=== PATIENT | male | born 1955 | race Caucasian/White ===

== ENCOUNTER → 2021-11-23 | Outpatient (REF) | payer MEDICARE ==
[2021-11-23 18:37] LABS: ALBUMIN 3.7 GM/DL (3.2-5.2); BILIRUBIN,TOTAL 0.5 MG/DL (0.2-1.0); CALCIUM LEVEL 9.4 MG/DL (8.8-10.2); CREATININE FOR GFR 1.33 MG/DL (0.70-1.30); GLOMERULAR FILTRATION RATE 57.3 (>49); POTASSIUM SERUM 3.3 MEQ/L (3.5-5.1); TOTAL PROTEIN 7.6 GM/DL (6.4-8.2)
== END ==
LOC: M LAB REF 17:06
PROVIDERS: ATTEND Family Medicine
DX: I13.0 Hypertensive heart and chronic kidney disease with heart failure and stage 1 through stage 4 chronic kidney disease, or unspecified chronic kidney disease (principal); I50.9 Heart failure, unspecified; N18.9 Chronic kidney disease, unspecified

== ENCOUNTER → 2021-12-20 | Outpatient (REF) | payer MEDICARE ==
[2021-12-20 18:04] LABS: BLOOD UREA NITROGEN 32 MG/DL (7-18); CALCIUM LEVEL 9.3 MG/DL (8.8-10.2); CARBON DIOXIDE LEVEL 27 MEQ/L (21-32); CHLORIDE LEVEL 100 MEQ/L (98-107); CREATININE FOR GFR 1.16 MG/DL (0.70-1.30); GLOMERULAR FILTRATION RATE > 60.0 (>49); GLUCOSE, FASTING 122 MG/DL (70-100); POTASSIUM SERUM 3.7 MEQ/L (3.5-5.1); SODIUM LEVEL 137 MEQ/L (136-145)
== END ==
LOC: M LABDRAWC 17:09
PROVIDERS: ATTEND Physician Assistant
DX: I49.3 Ventricular premature depolarization (principal)

== ENCOUNTER → 2022-03-14 | Outpatient (REF) | payer MEDICARE ==
[2022-03-14 17:24] LABS: ALBUMIN 3.7 G/DL (3.2-5.2); ALKALINE PHOSPHATASE 135 U/L (46-116); ALT/SGPT 76 U/L (7.0-40); AST/SGOT 55 U/L (<34); BASO # 0.1 10^3/uL (0.0-0.2); BASO % 0.7 % (0.0-1.0); BILIRUBIN,TOTAL 0.5 MG/DL (0.3-1.2); BLOOD UREA NITROGEN 47 MG/DL (9-23); CALCIUM LEVEL 9.6 MG/DL (8.3-10.6); CARBON DIOXIDE LEVEL 27 MMOL/L (20-31); CHLORIDE LEVEL 95 MMOL/L (98-107); CHOLESTEROL LEVEL 141 MG/DL (<200); CHOLESTEROL RISK RATIO 4.51 (<5); CREATININE FOR GFR 1.21 MG/DL (0.70-1.30); EOS # 0.3 10^3/uL (0.0-0.5); EOS % 3.6 % (0.0-3.0); GLOMERULAR FILTRATION RATE > 60.0 (>49); GLUCOSE, FASTING 126 MG/DL (74-106); HDL CHOLESTEROL 31.2 MG/DL (>40); HEMATOCRIT 37.8 % (42.0-52.0); HEMOGLOBIN 12.6 g/dl (13.5-17.5); LDL CHOLESTEROL 67.2 MG/DL (<100); LYMPH # 1.5 10^3/uL (1.5-5.0); LYMPH % 17.5 % (24.0-44.0); MEAN CORPUSCULAR HEMOGLOBIN 30.7 pg (27.0-33.0); MEAN CORPUSCULAR HGB CONC 33.3 g/dl (32.0-36.5); MONO # 0.7 10^3/uL (0.0-0.8); MONO % 8.2 % (2.0-8.0); NEUTROPHILS % 69.4 % (36.0-66.0); NON-HDL-C 110 MG/DL; PLATELET COUNT, AUTOMATED 126 10^3/uL (150-450); POTASSIUM SERUM 4.2 MMOL/L (3.5-5.1); RED BLOOD COUNT 4.11 10^6/uL (4.30-6.10); SODIUM LEVEL 134 MMOL/L (136-145); THYROID STIMULATING HORMONE 3.072 uIU/ML (0.55-4.78); TOTAL PROTEIN 7.1 G/DL (5.7-8.2); TRIGLYCERIDES LEVEL 213 MG/DL (<150); WHITE BLOOD COUNT 8.6 10^3/uL (4.0-10.0)
[2022-03-14 17:26] LABS: FREE T4 1.08 NG/DL (0.89-1.76); VITAMIN B12 LEVEL 404 PG/ML (211-911)
[2022-03-14 18:36] LABS: HEMOGLOBIN A1c 6.1 % (4.0-6.0)
== END ==
LOC: M SHH 16:45
PROVIDERS: ATTEND Family Medicine
DX: I10 Essential (primary) hypertension (principal); E78.2 Mixed hyperlipidemia; E11.9 Type 2 diabetes mellitus without complications; R53.83 Other fatigue; Z12.5 Encounter for screening for malignant neoplasm of prostate
CPT/HCPCS: 80053; 80061; 82607; 83036; 84439; 84443; 85025; G0103

== ENCOUNTER → 2022-08-21 | Outpatient (REF) | payer MEDICARE ==
[2022-08-21 19:34] LABS: ALBUMIN 3.8 G/DL (3.2-5.2); ALKALINE PHOSPHATASE 132 U/L (46-116); ALT/SGPT 28 U/L (7.0-40); AST/SGOT 29 U/L (<34); BILIRUBIN,TOTAL 0.6 MG/DL (0.3-1.2); BLOOD UREA NITROGEN 38 MG/DL (9-23); CALCIUM LEVEL 10.6 MG/DL (8.3-10.6); CARBON DIOXIDE LEVEL 28 MMOL/L (20-31); CHLORIDE LEVEL 96 MMOL/L (98-107); GLOMERULAR FILTRATION RATE > 60.0 (>49); GLUCOSE, FASTING 187 MG/DL (74-106); POTASSIUM SERUM 4.5 MMOL/L (3.5-5.1); SODIUM LEVEL 133 MMOL/L (136-145); TOTAL PROTEIN 7.5 G/DL (5.7-8.2)
== END ==
LOC: M LABDRAWC 17:44
PROVIDERS: ATTEND Family Medicine
DX: I11.0 Hypertensive heart disease with heart failure (principal); R79.89 Other specified abnormal findings of blood chemistry

== ENCOUNTER 2022-09-25 10:16 | Inpatient (IN) | payer MEDICARE ==
[~2022-09-25] VITALS: Ht 182.9 cm; Wt 160.0 kg
[2022-09-25] VITALS (18 sets, daily range): BP systolic 88–115; BP diastolic 52–78; TEMP 97.2; O2SAT 95–100
[2022-09-25] MEDS ORDERED: PIPERACILLIN/TAZOBACTAM SOD 4.5 GM in D5W MINI-BAG PLUS 50 ML IV ONE (10:55)
[2022-09-25] MEDS ORDERED: ISOVUE-300 61% 100ML VIAL As Ordered ONE (10:57)
[2022-09-25] MEDS ORDERED: NS IV ONE (11:00)
[2022-09-25 11:46] LABS: INR 1.27; PROTHROMBIN TIME 15.5 SECONDS (12.5-14.5)
[2022-09-25 11:47] LABS: PARTIAL THROMBOPLASTIN TIME 31.1 SECONDS (24.8-34.2)
[2022-09-25 11:58] LABS: ALBUMIN 3.1 G/DL (3.2-5.2); BILIRUBIN,DIRECT 0.4 MG/DL (<0.4); BILIRUBIN,TOTAL 0.9 MG/DL (0.3-1.2); TOTAL PROTEIN 6.9 G/DL (5.7-8.2)
[2022-09-25] MEDS ORDERED: POTA-298 PO (11:59)
[2022-09-25] MEDS ORDERED: ALLO100T PO ×2 (11:59→21:37)
[2022-09-25] MEDS ORDERED: GABA-282 PO (11:59)
[2022-09-25] MEDS ORDERED: ALFU10TA3 PO (11:59)
[2022-09-25] MEDS ORDERED: TORS20TA2 PO (11:59)
[2022-09-25] MEDS ORDERED: METF-838 PO (11:59)
[2022-09-25] MEDS ORDERED: FINA5TAB2 PO (11:59)
[2022-09-25 12:06] LABS: RSV AMPLIFICATION NEGATIVE (NEGATIVE)
[2022-09-25 12:22] LABS: BASO % 0.1 % (0.0-1.0); HEMOGLOBIN 12.8 g/dl (13.5-17.5); LYMPH # 0.7 10^3/uL (1.5-5.0); LYMPH % 3.9 % (24.0-44.0); MEAN CORPUSCULAR HEMOGLOBIN 32.4 pg (27.0-33.0); MEAN CORPUSCULAR HGB CONC 35.6 g/dl (32.0-36.5); MEAN CORPUSCULAR VOLUME 91.1 fl (80.0-96.0); MONO # 1.5 10^3/uL (0.0-0.8); NEUTROPHILS % 87.5 % (36.0-66.0); PLATELET COUNT, AUTOMATED 162 10^3/uL (150-450); RED BLOOD COUNT 3.95 10^6/uL (4.30-6.10); WHITE BLOOD COUNT 18.3 10^3/uL (4.0-10.0)
[2022-09-25] MEDS ORDERED: ONDANSETRON 4MG 2ML VIAL IV ONE (12:30)
[2022-09-25] MEDS ORDERED: HYDROMORPHONE HCL 0.5 MG/ 0.5 ML SYRINGE IV ONE (12:30)
[2022-09-25 12:34] LABS: MB/CK RELATIVE INDEX 6.81 (< OR =4)
[2022-09-25] MEDS ORDERED: NOREPINEPHRINE 4MG IN D5 250ML 4 MG in IV 1 EA IV SCH ×4 (13:50→19:25)
[2022-09-25] MEDS ORDERED: MIDAZOLAM INJ 2MG/2ML VIAL As Ordered ONE (14:31)
[2022-09-25] MEDS ORDERED: fentaNYL 100 MCG/2 ML INJECTION As Ordered ONE (14:31)
[2022-09-25] MEDS ORDERED: LIDOCAINE 2% 100MG/5ML SDV (FOR ANES.) As Ordered ONE (14:32)
[2022-09-25] MEDS ORDERED: ROCURONIUM BROMIDE 50MG/5ML VIAL As Ordered ONE ×3 (14:32→18:01)
[2022-09-25] MEDS ORDERED: propofoL 200 MG/20 ML VIAL As Ordered ONE ×2 (14:32→15:03)
[2022-09-25] MEDS ORDERED: PHENYLEPHRINE 10MG/ML 1ML VIAL As Ordered ONE ×2 (14:32→18:14)
[2022-09-25] MEDS ORDERED: ONDANSETRON 4MG 2ML VIAL As Ordered ONE (14:41)
[2022-09-25] MEDS ORDERED: SUGAMMADEX SODIUM 500 MG/5 ML VIAL (BRIDION) As Ordered ONE (15:34)
[2022-09-25] MEDS ORDERED: VASOPRESSIN INJ 20UNITS/ML 1ML VIAL As Ordered ONE (15:57)
[2022-09-25] MEDS ORDERED: MIDAZOLAM 5MG/ML 1ML VIAL As Ordered ONE (17:48)
[2022-09-25] MEDS ORDERED: PROPOFOL 1,000 MG/100 ML VIAL As Ordered ONE (18:13)
[2022-09-25] MEDS ORDERED: fentaNYL 100 MCG/2 ML INJECTION IV PRN (18:15)
[2022-09-25] MEDS ORDERED: GLUCAGON INJ 1MG VIAL SC PRN ×2 (18:15→19:25)
[2022-09-25] MEDS ORDERED: HYDROMORPHONE HCL 0.5 MG/ 0.5 ML SYRINGE IV PRN (18:15)
[2022-09-25] MEDS ORDERED: oxyCODONE 5MG TAB PO PRN (18:15)
[2022-09-25] MEDS ORDERED: DEXTROSE 50% 50ML SYRINGE IV PRN ×2 (18:15→19:25)
[2022-09-25] MEDS ORDERED: ONDANSETRON 4MG 2ML VIAL IV PRN ×2 (18:15→19:25)
[2022-09-25] MEDS ORDERED: propofoL 1,000 MG in IV 1 EA IV SCH (18:15)
[2022-09-25] MEDS ORDERED: GLUCOSE 4GM CHEW TABLET PO PRN ×2 (18:15→19:25)
[2022-09-25] MEDS ORDERED: LR 1,000 ML IV SCH (18:15)
[2022-09-25] MEDS ORDERED: PHENYLEPHRINE HCL INJ 10 MG in D5W 100 ML IV SCH (18:15)
[2022-09-25 19:08] LABS: VENOUS BASE EXCESS -6.3 (-2.0-2.0); VENOUS HCO3 19.9 MMOL/L (23.0-27.0); VENOUS O2 SATURATION 98.7 % (60.0-80.0); VENOUS PARTIAL PRESSURE CO2 42.2 mmHg (38.0-50.0); VENOUS PARTIAL PRESSURE O2 170.1 mmHg (30.0-50.0); VENOUS PH 7.291 UNITS (7.330-7.430); VENOUS STANDARD HCO3 19.3 MMOL/L; VENOUS TOTAL CO2 21.2 MMOL/L (24.0-28.0)
[2022-09-25] MEDS ORDERED: MIDAZOLAM 100MG/100ML-0.9%NACL 100 MG in IV 1 EA IV SCH (19:25)
[2022-09-25] MEDS: LR 1,000 ML IV SCH (19:25)
[2022-09-25 19:31] LABS: HEMATOCRIT 30.1 % (42.0-52.0); HEMOGLOBIN 10.3 g/dl (13.5-17.5); MEAN CORPUSCULAR HEMOGLOBIN 32.3 pg (27.0-33.0); MEAN CORPUSCULAR HGB CONC 34.2 g/dl (32.0-36.5); MEAN CORPUSCULAR VOLUME 94.4 fl (80.0-96.0); PLATELET COUNT, AUTOMATED 126 10^3/uL (150-450); RED BLOOD COUNT 3.19 10^6/uL (4.30-6.10); WHITE BLOOD COUNT 12.4 10^3/uL (4.0-10.0)
[2022-09-25 19:48] LABS: ABG BASE EXCESS -4.9 (-2.0-2.0); ABG HCO3 22.5 MMOL/L (22.0-26.0); ABG O2 SATURATION 97.2 % (95.0-99.0); ABG PARTIAL PRESSURE CO2 52.4 mmHg (35.0-45.0); ABG PARTIAL PRESSURE O2 115.2 mmHg (75.0-100.0); ABG STANDARD HCO3 20.4 MMOL/L. (22.0-26.0); ABG TOTAL CO2 24.1 MMOL/L (23.0-31.0); ABG pH (ARTERIAL) 7.251 UNITS (7.350-7.450)
[2022-09-25 19:52] LABS: ALBUMIN 2.3 G/DL (3.2-5.2); BILIRUBIN,TOTAL 0.7 MG/DL (0.3-1.2); CALCIUM LEVEL 8.2 MG/DL (8.3-10.6); CREATININE FOR GFR 2.2 MG/DL (0.70-1.30); POTASSIUM SERUM 3.8 MMOL/L (3.5-5.1); TOTAL PROTEIN 5.3 G/DL (5.7-8.2)
[2022-09-25] MEDS: NOREPINEPHRINE 4MG IN D5 250ML 4 MG in IV 1 EA IV SCH ×2 (19:55)
[2022-09-25] MEDS: IPRATROPIUM 0.5MG/ALBUTEROL 2.5MG INH SOL UD 3ML (DUONEB) NEB SCH (20:00)
[2022-09-25] MEDS ORDERED: FENTANYL DRIP LOCK BOX KEY 1 EACH XX PRN (20:35)
[2022-09-25] MEDS ORDERED: METO25TA PO (21:37)
[2022-09-25] MEDS ORDERED: SPIR-10 PO (21:37)
[2022-09-25] MEDS ORDERED: HYDR-3719 PO (21:37)
[2022-09-25] MEDS: CHLORHEXIDINE GLUCONATE 0.12 % 15ML UDC (PERIDEX ORAL RINSE) MT SCH (21:40)
[2022-09-25] MEDS ORDERED: HOME MED LIST COMPLETE! XX SCH (21:40)
[2022-09-25] MEDS: fentaNYL CITRATE/NaCl 1,000 MCG in IV 1 EA IV SCH (21:52)
[2022-09-25] MEDS: PIPERACILLIN/TAZOBACTAM SOD 3.375 GM in D5W MINI-BAG PLUS 50 ML IV SCH (21:53)
[2022-09-26] VITALS (73 sets, daily range): BP systolic 87–117; BP diastolic 47–70; TEMP 97–101.2; O2SAT 93–100
[2022-09-26] MEDS: IPRATROPIUM 0.5MG/ALBUTEROL 2.5MG INH SOL UD 3ML (DUONEB) NEB SCH ×7 (00:37→23:20)
[2022-09-26] MEDS: NOREPINEPHRINE 4MG IN D5 250ML 4 MG in IV 1 EA IV SCH ×8 (00:47→15:49)
[2022-09-26] MEDS: propofoL 1,000 MG in IV 1 EA IV SCH ×14 (01:47→19:54)
[2022-09-26] MEDS: PIPERACILLIN/TAZOBACTAM SOD 3.375 GM in D5W MINI-BAG PLUS 50 ML IV SCH ×4 (03:30→19:54)
[2022-09-26 04:58] LABS: BASO % 0.2 % (0.0-1.0); HEMATOCRIT 28.2 % (42.0-52.0); HEMOGLOBIN 9.5 g/dl (13.5-17.5); LYMPH # 0.5 10^3/uL (1.5-5.0); LYMPH % 3.4 % (24.0-44.0); MEAN CORPUSCULAR HEMOGLOBIN 31.8 pg (27.0-33.0); MEAN CORPUSCULAR HGB CONC 33.7 g/dl (32.0-36.5); MEAN CORPUSCULAR VOLUME 94.3 fl (80.0-96.0); MONO # 1.2 10^3/uL (0.0-0.8); MONO % 7.9 % (2.0-8.0); NEUTROPHILS # 13.6 10^3/uL (1.5-8.5); PLATELET COUNT, AUTOMATED 153 10^3/uL (150-450); RED BLOOD COUNT 2.99 10^6/uL (4.30-6.10); WHITE BLOOD COUNT 15.4 10^3/uL (4.0-10.0)
[2022-09-26] MEDS: MIDAZOLAM INJ 2MG/2ML VIAL IV PRN ×5 (05:11→20:19)
[2022-09-26] MEDS: HEPARIN SOD (PORCINE) 5000UNITS/ML 1ML VIAL/SYRINGE SC SCH ×3 (05:21→22:22)
[2022-09-26 05:31] LABS: ALBUMIN 2.3 G/DL (3.2-5.2); CALCIUM LEVEL 8.4 MG/DL (8.3-10.6); CREATININE FOR GFR 1.87 MG/DL (0.70-1.30); GLOMERULAR FILTRATION RATE 38.6 (>49); PHOSPHORUS LEVEL 3.3 MG/DL (2.4-5.1)
[2022-09-26] MEDS ORDERED: HumuLIN R (REGULAR) INSULIN (NovoLIN R) **100U/ML** PER UNIT IV STA (05:31)
[2022-09-26 05:45] LABS: ABG BASE EXCESS -3.1 (-2.0-2.0); ABG O2 SATURATION 98.7 % (95.0-99.0); ABG PARTIAL PRESSURE CO2 39.9 mmHg (35.0-45.0); ABG PARTIAL PRESSURE O2 136.5 mmHg (75.0-100.0); ABG STANDARD HCO3 21.9 MMOL/L. (22.0-26.0); ABG TOTAL CO2 23.3 MMOL/L (23.0-31.0)
[2022-09-26] MEDS: LEVEMIR (INSULIN DETEMIR) 1 UNITS/0.01ML SC SCH ×2 (06:05→08:26)
[2022-09-26] MEDS: LR 1,000 ML IV SCH ×2 (06:06→15:50)
[2022-09-26] MEDS: INSULIN LISPRO (NovoLOG) PER UNIT SC SCH ×5 (06:06→20:55)
[2022-09-26] MEDS: fentaNYL CITRATE/NaCl 1,000 MCG in IV 1 EA IV SCH ×2 (07:01→16:51)
[2022-09-26] MEDS ORDERED: INSULIN LISPRO (NovoLOG) PER UNIT SC SCH (07:30)
[2022-09-26] MEDS: CHLORHEXIDINE GLUCONATE 0.12 % 15ML UDC (PERIDEX ORAL RINSE) MT SCH ×2 (08:27→19:54)
[2022-09-26] MEDS: PANTOPRAZOLE 40MG VIAL IV SCH (08:27)
[2022-09-26 08:57] LABS: MAGNESIUM LEVEL 1.9 MG/DL (1.8-2.4)
[2022-09-26] MEDS ORDERED: PIPERACILLIN/TAZOBACTAM SOD 3.375 GM in D5W MINI-BAG PLUS 50 ML IV SCH (10:45)
[2022-09-26] MEDS: metroNIDAZOLE 500 MG in IV 1 EA IV SCH ×2 (10:55→18:17)
[2022-09-26] MEDS ORDERED: ACETAMINOPHEN 1000MG 100ML IV BAG IV ONE (11:00)
[2022-09-26] MEDS: VASOPRESSIN INJ 20 UNITS in NS 499 ML IV SCH ×2 (11:29→18:17)
[2022-09-26] MEDS ORDERED: MAG SULF 1GM/100ML (MAG RUN) 1 GM in IV 1 EA IV ONE (12:00)
[2022-09-26 13:59] LABS: CALCIUM LEVEL 8.5 MG/DL (8.3-10.6); CREATININE FOR GFR 1.63 MG/DL (0.70-1.30); GLOMERULAR FILTRATION RATE 45.3 (>49); POTASSIUM SERUM 3.5 MMOL/L (3.5-5.1)
[2022-09-26 21:53] LABS: CALCIUM LEVEL 8.2 MG/DL (8.3-10.6); CREATININE FOR GFR 1.43 MG/DL (0.70-1.30); GLOMERULAR FILTRATION RATE 52.7 (>49); MAGNESIUM LEVEL 2.3 MG/DL (1.8-2.4); POTASSIUM SERUM 3.4 MMOL/L (3.5-5.1)
[2022-09-27] VITALS (96 sets, daily range): BP systolic 88–223; BP diastolic 41–100; TEMP 95.5–99.5; O2SAT 92–99
[2022-09-27] MEDS: propofoL 1,000 MG in IV 1 EA IV SCH ×4 (01:19→06:39)
[2022-09-27] MEDS: INSULIN LISPRO (NovoLOG) PER UNIT SC SCH ×2 (01:33→05:26)
[2022-09-27 02:15] LABS: BLOOD UREA NITROGEN 46 MG/DL (9-23); CALCIUM LEVEL 8.1 MG/DL (8.3-10.6); CARBON DIOXIDE LEVEL 28 MMOL/L (20-31); CHLORIDE LEVEL 97 MMOL/L (98-107); CREATININE FOR GFR 1.25 MG/DL (0.70-1.30); GLOMERULAR FILTRATION RATE > 60.0 (>49); GLUCOSE, FASTING 377 MG/DL (74-106); POTASSIUM SERUM 3.1 MMOL/L (3.5-5.1); SODIUM LEVEL 133 MMOL/L (136-145)
[2022-09-27] MEDS: LR 1,000 ML IV SCH ×3 (02:38→21:07)
[2022-09-27] MEDS: metroNIDAZOLE 500 MG in IV 1 EA IV SCH (02:41)
[2022-09-27] MEDS: fentaNYL CITRATE/NaCl 1,000 MCG in IV 1 EA IV SCH ×3 (03:00→22:07)
[2022-09-27] MEDS: KCL 20MEQ IN 100ML SWI (KRUN) 20 MEQ in IV 1 EA IV SCH ×8 (03:37→13:28)
[2022-09-27] MEDS: IPRATROPIUM 0.5MG/ALBUTEROL 2.5MG INH SOL UD 3ML (DUONEB) NEB SCH ×6 (03:41→23:40)
[2022-09-27] MEDS: VASOPRESSIN INJ 20 UNITS in NS 499 ML IV SCH ×3 (03:47→20:29)
[2022-09-27] MEDS: PIPERACILLIN/TAZOBACTAM SOD 3.375 GM in D5W MINI-BAG PLUS 50 ML IV SCH ×4 (03:47→20:53)
[2022-09-27] MEDS: MIDAZOLAM INJ 2MG/2ML VIAL IV PRN (04:10)
[2022-09-27 04:22] LABS: HEMATOCRIT 23.4 % (42.0-52.0); MEAN CORPUSCULAR HEMOGLOBIN 33.2 pg (27.0-33.0); MEAN CORPUSCULAR HGB CONC 34.2 g/dl (32.0-36.5); MEAN CORPUSCULAR VOLUME 97.1 fl (80.0-96.0); RED BLOOD COUNT 2.41 10^6/uL (4.30-6.10)
[2022-09-27 04:48] LABS: MAGNESIUM LEVEL 2.3 MG/DL (1.8-2.4); PLATELET COUNT, AUTOMATED 99 10^3/uL (150-450)
[2022-09-27] MEDS: HEPARIN SOD (PORCINE) 5000UNITS/ML 1ML VIAL/SYRINGE SC SCH (05:25)
[2022-09-27 06:02] LABS: ABG HCO3 24.4 MMOL/L (22.0-26.0); ABG O2 SATURATION 96.6 % (95.0-99.0); ABG PARTIAL PRESSURE O2 89.1 mmHg (75.0-100.0); ABG STANDARD HCO3 23.6 MMOL/L. (22.0-26.0); ABG TOTAL CO2 25.8 MMOL/L (23.0-31.0); ABG pH (ARTERIAL) 7.362 UNITS (7.350-7.450)
[2022-09-27] MEDS ORDERED: dexmedeTOMidine 200 MCG in IV 1 EA IV SCH (07:40)
[2022-09-27] MEDS ORDERED: MIDAZOLAM INJ 2MG/2ML VIAL IV STA ×2 (08:13→08:19)
[2022-09-27] MEDS: MIDAZOLAM 100MG/100ML-0.9%NACL 100 MG in IV 1 EA IV SCH ×2 (08:19→19:37)
[2022-09-27] MEDS ORDERED: levETIRAcetam INJection 4,500 MG in D5W 100 ML IV STA (08:27)
[2022-09-27] MEDS ORDERED: LORazepam 2 MG/ML 1ML VIAL IM STA (08:29)
[2022-09-27] MEDS ORDERED: THIAMINE INJection 500 MG in NS 100 ML IV STA (08:35)
[2022-09-27] MEDS ORDERED: LORazepam 2 MG/ML 1ML VIAL IV STA ×5 (08:38→11:44)
[2022-09-27 08:49] LABS: ABG BASE EXCESS 0.5 (-2.0-2.0); ABG HCO3 26.1 MMOL/L (22.0-26.0); ABG PARTIAL PRESSURE CO2 46.9 mmHg (35.0-45.0); ABG PARTIAL PRESSURE O2 70.1 mmHg (75.0-100.0); ABG STANDARD HCO3 24.9 MMOL/L. (22.0-26.0); ABG TOTAL CO2 27.5 MMOL/L (23.0-31.0); ABG pH (ARTERIAL) 7.363 UNITS (7.350-7.450)
[2022-09-27] MEDS: CHLORHEXIDINE GLUCONATE 0.12 % 15ML UDC (PERIDEX ORAL RINSE) MT SCH ×2 (08:52→20:53)
[2022-09-27] MEDS: PANTOPRAZOLE 40MG VIAL IV SCH (08:52)
[2022-09-27] MEDS: INSULIN REGULAR IN 0.9 % NACL 100 UNIT in IV 1 EA IV SCH ×4 (08:52→18:08)
[2022-09-27 08:55] LABS: HEMOGLOBIN 8.1 g/dl (13.5-17.5); MEAN CORPUSCULAR HEMOGLOBIN 32.8 pg (27.0-33.0); MEAN CORPUSCULAR HGB CONC 33.8 g/dl (32.0-36.5); MEAN CORPUSCULAR VOLUME 97.2 fl (80.0-96.0); RED BLOOD COUNT 2.47 10^6/uL (4.30-6.10); WHITE BLOOD COUNT 6.7 10^3/uL (4.0-10.0)
[2022-09-27] MEDS ORDERED: PHENYTOIN INJection 2,000 MG in NS 250 ML IV ONE (09:00)
[2022-09-27] MEDS ORDERED: MIDAZOLAM 100MG/100ML-0.9%NACL 100 MG in IV 1 EA IV SCH ×2 (09:00→21:42)
[2022-09-27 09:25] LABS: ALBUMIN 2.2 G/DL (3.2-5.2); ALKALINE PHOSPHATASE 69 U/L (46-116); ALT/SGPT < 9 U/L (7.0-40); AST/SGOT 9 U/L (<34); BILIRUBIN,TOTAL 0.2 MG/DL (0.3-1.2); BLOOD UREA NITROGEN 33 MG/DL (9-23); CALCIUM LEVEL 8.4 MG/DL (8.3-10.6); CARBON DIOXIDE LEVEL 27 MMOL/L (20-31); CHLORIDE LEVEL 100 MMOL/L (98-107); CREATININE FOR GFR 1.06 MG/DL (0.70-1.30); GLOMERULAR FILTRATION RATE > 60.0 (>49); GLUCOSE, FASTING 354 MG/DL (74-106); POTASSIUM SERUM 3.2 MMOL/L (3.5-5.1); SODIUM LEVEL 134 MMOL/L (136-145); TOTAL PROTEIN 5.4 G/DL (5.7-8.2)
[2022-09-27] MEDS: INSULIN IV RATE CHANGE DOCUMENTATION ML/HR XX SCH ×6 (10:04→20:01)
[2022-09-27] MEDS: NOREPINEPHRINE 4MG IN D5 250ML 4 MG in IV 1 EA IV SCH ×4 (11:53→18:18)
[2022-09-27 12:59] LABS: BLOOD UREA NITROGEN 31 MG/DL (9-23); CALCIUM LEVEL 8.2 MG/DL (8.3-10.6); CARBON DIOXIDE LEVEL 26 MMOL/L (20-31); CHLORIDE LEVEL 102 MMOL/L (98-107); GLOMERULAR FILTRATION RATE > 60.0 (>49); GLUCOSE, FASTING 307 MG/DL (74-106); POTASSIUM SERUM 3.1 MMOL/L (3.5-5.1); SODIUM LEVEL 135 MMOL/L (136-145)
[2022-09-27] MEDS: ENOXAPARIN 40MG/0.4ML SYRINGE (J1650 PER 10MG) SC SCH (13:28)
[2022-09-27] MEDS ORDERED: LORazepam 2 MG/ML 1ML VIAL IV PRN (14:25)
[2022-09-27 17:26] LABS: BLOOD UREA NITROGEN 30 MG/DL (9-23); CALCIUM LEVEL 8.5 MG/DL (8.3-10.6); CARBON DIOXIDE LEVEL 27 MMOL/L (20-31); CHLORIDE LEVEL 101 MMOL/L (98-107); CREATININE FOR GFR 0.97 MG/DL (0.70-1.30); GLOMERULAR FILTRATION RATE > 60.0 (>49); GLUCOSE, FASTING 229 MG/DL (74-106); POTASSIUM SERUM 3.2 MMOL/L (3.5-5.1); SODIUM LEVEL 136 MMOL/L (136-145)
[2022-09-27] MEDS ORDERED: KCL 20MEQ IN 100ML SWI (KRUN) 20 MEQ in IV 1 EA IV ONE ×2 (18:00)
[2022-09-27] MEDS: levETIRAcetam INJection 1,000 MG in D5W 100 ML IV SCH (20:26)
[2022-09-27] MEDS: PHENYTOIN 100MG/2ML VIAL IV SCH (21:06)
[2022-09-27 21:22] LABS: HEMATOCRIT 25.3 % (42.0-52.0); HEMOGLOBIN 8.4 g/dl (13.5-17.5); MEAN CORPUSCULAR HEMOGLOBIN 31.9 pg (27.0-33.0); MEAN CORPUSCULAR HGB CONC 33.2 g/dl (32.0-36.5); MEAN CORPUSCULAR VOLUME 96.2 fl (80.0-96.0); PLATELET COUNT, AUTOMATED 143 10^3/uL (150-450); RED BLOOD COUNT 2.63 10^6/uL (4.30-6.10); WHITE BLOOD COUNT 12.3 10^3/uL (4.0-10.0)
[2022-09-27 21:43] LABS: BLOOD UREA NITROGEN 31 MG/DL (9-23); CALCIUM LEVEL 8.1 MG/DL (8.3-10.6); CARBON DIOXIDE LEVEL 27 MMOL/L (20-31); CHLORIDE LEVEL 105 MMOL/L (98-107); CREATININE FOR GFR 0.98 MG/DL (0.70-1.30); GLOMERULAR FILTRATION RATE > 60.0 (>49); GLUCOSE, FASTING 146 MG/DL (74-106); POTASSIUM SERUM 3.6 MMOL/L (3.5-5.1); SODIUM LEVEL 139 MMOL/L (136-145)
[2022-09-28] VITALS (50 sets, daily range): BP systolic 88–138; BP diastolic 48–77; TEMP 99.3–100.6; O2SAT 19–99
[2022-09-28] MEDS: INSULIN REGULAR IN 0.9 % NACL 100 UNIT in IV 1 EA IV SCH ×2 (00:04)
[2022-09-28] MEDS: NOREPINEPHRINE 4MG IN D5 250ML 4 MG in IV 1 EA IV SCH ×4 (00:04→05:21)
[2022-09-28] MEDS: INSULIN IV RATE CHANGE DOCUMENTATION ML/HR XX SCH ×5 (01:09→08:32)
[2022-09-28 01:46] LABS: BLOOD UREA NITROGEN 29 MG/DL (9-23); CALCIUM LEVEL 8.4 MG/DL (8.3-10.6); CARBON DIOXIDE LEVEL 29 MMOL/L (20-31); CHLORIDE LEVEL 105 MMOL/L (98-107); GLOMERULAR FILTRATION RATE > 60.0 (>49); GLUCOSE, FASTING 82 MG/DL (74-106); POTASSIUM SERUM 3.5 MMOL/L (3.5-5.1); SODIUM LEVEL 140 MMOL/L (136-145)
[2022-09-28] MEDS: PHENYTOIN 100MG/2ML VIAL IV SCH ×4 (02:58→20:14)
[2022-09-28] MEDS: PIPERACILLIN/TAZOBACTAM SOD 3.375 GM in D5W MINI-BAG PLUS 50 ML IV SCH ×4 (02:58→20:14)
[2022-09-28] MEDS: IPRATROPIUM 0.5MG/ALBUTEROL 2.5MG INH SOL UD 3ML (DUONEB) NEB SCH ×4 (03:47→15:10)
[2022-09-28] MEDS: levETIRAcetam INJection 1,000 MG in D5W 100 ML IV SCH ×3 (04:42→20:30)
[2022-09-28] MEDS: VASOPRESSIN INJ 20 UNITS in NS 499 ML IV SCH (04:42)
[2022-09-28 05:07] LABS: ABG BASE EXCESS 0.4 (-2.0-2.0); ABG HCO3 24.9 MMOL/L (22.0-26.0); ABG O2 SATURATION 95.7 % (95.0-99.0); ABG PARTIAL PRESSURE CO2 39.8 mmHg (35.0-45.0); ABG PARTIAL PRESSURE O2 79.9 mmHg (75.0-100.0); ABG STANDARD HCO3 24.8 MMOL/L. (22.0-26.0); ABG TOTAL CO2 26.2 MMOL/L (23.0-31.0); ABG pH (ARTERIAL) 7.415 UNITS (7.350-7.450)
[2022-09-28 05:21] LABS: HEMATOCRIT 26.4 % (42.0-52.0); HEMOGLOBIN 8.6 g/dl (13.5-17.5); MEAN CORPUSCULAR HEMOGLOBIN 31.5 pg (27.0-33.0); MEAN CORPUSCULAR HGB CONC 32.6 g/dl (32.0-36.5); MEAN CORPUSCULAR VOLUME 96.7 fl (80.0-96.0); PLATELET COUNT, AUTOMATED 156 10^3/uL (150-450); RED BLOOD COUNT 2.73 10^6/uL (4.30-6.10); WHITE BLOOD COUNT 11.8 10^3/uL (4.0-10.0)
[2022-09-28 05:38] LABS: BLOOD UREA NITROGEN 26 MG/DL (9-23); CALCIUM LEVEL 8.2 MG/DL (8.3-10.6); CARBON DIOXIDE LEVEL 28 MMOL/L (20-31); CHLORIDE LEVEL 104 MMOL/L (98-107); CREATININE FOR GFR 0.95 MG/DL (0.70-1.30); GLOMERULAR FILTRATION RATE > 60.0 (>49); GLUCOSE, FASTING 138 MG/DL (74-106); MAGNESIUM LEVEL 2.2 MG/DL (1.8-2.4); POTASSIUM SERUM 3.9 MMOL/L (3.5-5.1); SODIUM LEVEL 138 MMOL/L (136-145)
[2022-09-28] MEDS: fentaNYL CITRATE/NaCl 1,000 MCG in IV 1 EA IV SCH ×2 (08:21→18:40)
[2022-09-28] MEDS: LR 1,000 ML IV SCH ×2 (08:26→18:20)
[2022-09-28 09:53] LABS: BLOOD UREA NITROGEN 23 MG/DL (9-23); CALCIUM LEVEL 8.2 MG/DL (8.3-10.6); CARBON DIOXIDE LEVEL 29 MMOL/L (20-31); CHLORIDE LEVEL 104 MMOL/L (98-107); CREATININE FOR GFR 0.88 MG/DL (0.70-1.30); GLOMERULAR FILTRATION RATE > 60.0 (>49); GLUCOSE, FASTING 159 MG/DL (74-106); SODIUM LEVEL 138 MMOL/L (136-145)
[2022-09-28] MEDS: ENOXAPARIN 40MG/0.4ML SYRINGE (J1650 PER 10MG) SC SCH (10:20)
[2022-09-28] MEDS: PANTOPRAZOLE 40MG VIAL IV SCH (10:20)
[2022-09-28] MEDS: CHLORHEXIDINE GLUCONATE 0.12 % 15ML UDC (PERIDEX ORAL RINSE) MT SCH ×2 (10:23→20:26)
[2022-09-28] MEDS ORDERED: fentaNYL 100 MCG/2 ML INJECTION As Ordered ONE (13:15)
[2022-09-28] MEDS: fentaNYL 100 MCG/2 ML INJECTION IV PRN ×2 (13:41→15:23)
[2022-09-28 14:24] LABS: BLOOD UREA NITROGEN 21 MG/DL (9-23); CARBON DIOXIDE LEVEL 29 MMOL/L (20-31); CHLORIDE LEVEL 104 MMOL/L (98-107); CREATININE FOR GFR 0.89 MG/DL (0.70-1.30); GLOMERULAR FILTRATION RATE > 60.0 (>49); GLUCOSE, FASTING 168 MG/DL (74-106); SODIUM LEVEL 139 MMOL/L (136-145)
[2022-09-28] MEDS: dexmedeTOMidine 200 MCG in IV 1 EA IV SCH ×3 (17:35→22:52)
[2022-09-28] MEDS ORDERED: fentaNYL 100 MCG/2 ML INJECTION IV ONE (18:40)
[2022-09-28] MEDS ORDERED: MIDAZOLAM INJ 2MG/2ML VIAL As Ordered ONE (18:46)
[2022-09-28] MEDS: ALBUTEROL SULFATE 2.5MG/0.5ML INH NEB SOLN NEB PRN (19:16)
[2022-09-28] MEDS: MIDAZOLAM INJ 2MG/2ML VIAL IV PRN ×2 (19:47→21:06)
[2022-09-29] VITALS (26 sets, daily range): BP systolic 96–156; BP diastolic 50–67; TEMP 97.8–100.8; O2SAT 92–99
[2022-09-29] MEDS: dexmedeTOMidine 200 MCG in IV 1 EA IV SCH ×5 (00:37→23:21)
[2022-09-29] MEDS: INSULIN REGULAR IN 0.9 % NACL 100 UNIT in IV 1 EA IV SCH ×2 (00:39)
[2022-09-29] MEDS: PIPERACILLIN/TAZOBACTAM SOD 3.375 GM in D5W MINI-BAG PLUS 50 ML IV SCH ×4 (02:22→20:24)
[2022-09-29] MEDS: PHENYTOIN 100MG/2ML VIAL IV SCH ×4 (02:23→21:12)
[2022-09-29] MEDS: levETIRAcetam INJection 1,000 MG in D5W 100 ML IV SCH ×3 (03:59→19:46)
[2022-09-29] MEDS: LR 1,000 ML IV SCH ×2 (04:00→17:59)
[2022-09-29 04:22] LABS: ABG BASE EXCESS 5.2 (-2.0-2.0); ABG HCO3 28.1 MMOL/L (22.0-26.0); ABG O2 SATURATION 97.4 % (95.0-99.0); ABG PARTIAL PRESSURE CO2 34.7 mmHg (35.0-45.0); ABG PARTIAL PRESSURE O2 88.1 mmHg (75.0-100.0); ABG STANDARD HCO3 29.2 MMOL/L. (22.0-26.0); ABG TOTAL CO2 29.2 MMOL/L (23.0-31.0); ABG pH (ARTERIAL) 7.527 UNITS (7.350-7.450)
[2022-09-29 04:35] LABS: HEMATOCRIT 25.4 % (42.0-52.0); HEMOGLOBIN 8.3 g/dl (13.5-17.5); MEAN CORPUSCULAR HEMOGLOBIN 31.7 pg (27.0-33.0); MEAN CORPUSCULAR HGB CONC 32.7 g/dl (32.0-36.5); MEAN CORPUSCULAR VOLUME 96.9 fl (80.0-96.0); PLATELET COUNT, AUTOMATED 138 10^3/uL (150-450); RED BLOOD COUNT 2.62 10^6/uL (4.30-6.10); WHITE BLOOD COUNT 9.7 10^3/uL (4.0-10.0)
[2022-09-29 04:49] LABS: BLOOD UREA NITROGEN 14 MG/DL (9-23); CALCIUM LEVEL 7.8 MG/DL (8.3-10.6); CARBON DIOXIDE LEVEL 27 MMOL/L (20-31); CHLORIDE LEVEL 108 MMOL/L (98-107); GLOMERULAR FILTRATION RATE > 60.0 (>49); GLUCOSE, FASTING 112 MG/DL (74-106); MAGNESIUM LEVEL 1.8 MG/DL (1.8-2.4); POTASSIUM SERUM 3.6 MMOL/L (3.5-5.1); SODIUM LEVEL 142 MMOL/L (136-145)
[2022-09-29] MEDS: fentaNYL CITRATE/NaCl 1,000 MCG in IV 1 EA IV SCH ×2 (06:13→16:54)
[2022-09-29] MEDS: MIDAZOLAM INJ 2MG/2ML VIAL IV PRN ×4 (06:27→20:23)
[2022-09-29] MEDS: PANTOPRAZOLE 40MG VIAL IV SCH (08:26)
[2022-09-29] MEDS: ENOXAPARIN 40MG/0.4ML SYRINGE (J1650 PER 10MG) SC SCH (08:27)
[2022-09-29] MEDS: CHLORHEXIDINE GLUCONATE 0.12 % 15ML UDC (PERIDEX ORAL RINSE) MT SCH ×2 (08:27→20:23)
[2022-09-29] MEDS: INSULIN IV RATE CHANGE DOCUMENTATION ML/HR XX SCH ×2 (08:33→10:20)
[2022-09-30] VITALS (20 sets, daily range): BP systolic 120–156; BP diastolic 54–72; TEMP 99.1–99.8; O2SAT 83–99
[2022-09-30] MEDS: MIDAZOLAM INJ 2MG/2ML VIAL IV PRN ×2 (02:39→22:53)
[2022-09-30] MEDS: PIPERACILLIN/TAZOBACTAM SOD 3.375 GM in D5W MINI-BAG PLUS 50 ML IV SCH ×4 (02:42→20:29)
[2022-09-30] MEDS: PHENYTOIN 100MG/2ML VIAL IV SCH ×4 (02:43→20:29)
[2022-09-30] MEDS: fentaNYL CITRATE/NaCl 1,000 MCG in IV 1 EA IV SCH ×2 (03:04→14:46)
[2022-09-30] MEDS: levETIRAcetam INJection 1,000 MG in D5W 100 ML IV SCH ×3 (04:28→20:07)
[2022-09-30 04:54] LABS: HEMOGLOBIN 8.4 g/dl (13.5-17.5); MEAN CORPUSCULAR HEMOGLOBIN 31.7 pg (27.0-33.0); MEAN CORPUSCULAR HGB CONC 32.3 g/dl (32.0-36.5); MEAN CORPUSCULAR VOLUME 98.1 fl (80.0-96.0); PLATELET COUNT, AUTOMATED 151 10^3/uL (150-450); RED BLOOD COUNT 2.65 10^6/uL (4.30-6.10)
[2022-09-30 05:17] LABS: MAGNESIUM LEVEL 1.7 MG/DL (1.8-2.4)
[2022-09-30 05:21] LABS: ALBUMIN 1.8 G/DL (3.2-5.2); ALKALINE PHOSPHATASE 87 U/L (46-116); ALT/SGPT 17 U/L (7.0-40); AST/SGOT 29 U/L (<34); BILIRUBIN,TOTAL 0.5 MG/DL (0.3-1.2); BLOOD UREA NITROGEN 12 MG/DL (9-23); CALCIUM LEVEL 7.8 MG/DL (8.3-10.6); CARBON DIOXIDE LEVEL 25 MMOL/L (20-31); CHLORIDE LEVEL 108 MMOL/L (98-107); CREATININE FOR GFR 0.68 MG/DL (0.70-1.30); GLOMERULAR FILTRATION RATE > 60.0 (>49); GLUCOSE, FASTING 165 MG/DL (74-106); POTASSIUM SERUM 3.4 MMOL/L (3.5-5.1); SODIUM LEVEL 145 MMOL/L (136-145); TOTAL PROTEIN 5.1 G/DL (5.7-8.2)
[2022-09-30] MEDS: dexmedeTOMidine 200 MCG in IV 1 EA IV SCH ×4 (05:43→23:51)
[2022-09-30 05:49] LABS: ABG BASE EXCESS 2.1 (-2.0-2.0); ABG HCO3 25.2 MMOL/L (22.0-26.0); ABG O2 SATURATION 97.4 % (95.0-99.0); ABG PARTIAL PRESSURE CO2 33.3 mmHg (35.0-45.0); ABG PARTIAL PRESSURE O2 98.7 mmHg (75.0-100.0); ABG STANDARD HCO3 26.4 MMOL/L. (22.0-26.0); ABG TOTAL CO2 26.2 MMOL/L (23.0-31.0); ABG pH (ARTERIAL) 7.497 UNITS (7.350-7.450)
[2022-09-30] MEDS: CHLORHEXIDINE GLUCONATE 0.12 % 15ML UDC (PERIDEX ORAL RINSE) MT SCH ×2 (08:05→20:20)
[2022-09-30] MEDS: PANTOPRAZOLE 40MG VIAL IV SCH (08:11)
[2022-09-30] MEDS: ENOXAPARIN 40MG/0.4ML SYRINGE (J1650 PER 10MG) SC SCH (08:17)
[2022-09-30] MEDS ORDERED: MAG SULF 1GM/100ML (MAG RUN) 1 GM in IV 1 EA IV ONE (09:00)
[2022-09-30] MEDS ORDERED: KCL 20MEQ IN 100ML SWI (KRUN) 20 MEQ in IV 1 EA IV ONE ×2 (10:00)
[2022-09-30] MEDS: LR 1,000 ML IV SCH (10:44)
[2022-10-01] VITALS (30 sets, daily range): BP systolic 124–154; BP diastolic 56–80; TEMP 98.8–100; O2SAT 95–100
[2022-10-01] MEDS: fentaNYL CITRATE/NaCl 1,000 MCG in IV 1 EA IV SCH ×3 (00:55→22:57)
[2022-10-01] MEDS: MIDAZOLAM INJ 2MG/2ML VIAL IV PRN ×8 (02:11→23:09)
[2022-10-01] MEDS: fentaNYL 100 MCG/2 ML INJECTION IV PRN ×3 (02:29→23:18)
[2022-10-01] MEDS: PIPERACILLIN/TAZOBACTAM SOD 3.375 GM in D5W MINI-BAG PLUS 50 ML IV SCH ×2 (03:00→09:42)
[2022-10-01] MEDS: PHENYTOIN 100MG/2ML VIAL IV SCH ×3 (03:00→16:34)
[2022-10-01] MEDS: LR 1,000 ML IV SCH ×3 (03:01→20:31)
[2022-10-01] MEDS: levETIRAcetam INJection 1,000 MG in D5W 100 ML IV SCH ×2 (04:36→16:34)
[2022-10-01] MEDS: dexmedeTOMidine 200 MCG in IV 1 EA IV SCH ×3 (05:44→18:03)
[2022-10-01 05:45] LABS: HEMATOCRIT 26.2 % (42.0-52.0); HEMOGLOBIN 8.2 g/dl (13.5-17.5); MEAN CORPUSCULAR HEMOGLOBIN 31.2 pg (27.0-33.0); MEAN CORPUSCULAR HGB CONC 31.3 g/dl (32.0-36.5); MEAN CORPUSCULAR VOLUME 99.6 fl (80.0-96.0); PLATELET COUNT, AUTOMATED 163 10^3/uL (150-450); RED BLOOD COUNT 2.63 10^6/uL (4.30-6.10); WHITE BLOOD COUNT 9.5 10^3/uL (4.0-10.0)
[2022-10-01 05:56] LABS: ALBUMIN 1.8 G/DL (3.2-5.2); ALKALINE PHOSPHATASE 93 U/L (46-116); ALT/SGPT 15 U/L (7.0-40); AST/SGOT 25 U/L (<34); BILIRUBIN,TOTAL 0.5 MG/DL (0.3-1.2); BLOOD UREA NITROGEN 9 MG/DL (9-23); CALCIUM LEVEL 7.7 MG/DL (8.3-10.6); CARBON DIOXIDE LEVEL 26 MMOL/L (20-31); CHLORIDE LEVEL 111 MMOL/L (98-107); GLOMERULAR FILTRATION RATE > 60.0 (>49); GLUCOSE, FASTING 162 MG/DL (74-106); POTASSIUM SERUM 3.4 MMOL/L (3.5-5.1); SODIUM LEVEL 145 MMOL/L (136-145); TOTAL PROTEIN 5.2 G/DL (5.7-8.2)
[2022-10-01 06:03] LABS: ABG BASE EXCESS 0.7 (-2.0-2.0); ABG HCO3 23.9 MMOL/L (22.0-26.0); ABG O2 SATURATION 97.1 % (95.0-99.0); ABG PARTIAL PRESSURE O2 95.1 mmHg (75.0-100.0); ABG STANDARD HCO3 25.1 MMOL/L. (22.0-26.0); ABG TOTAL CO2 24.9 MMOL/L (23.0-31.0); ABG pH (ARTERIAL) 7.478 UNITS (7.350-7.450)
[2022-10-01] MEDS ORDERED: KCL 20MEQ IN 100ML SWI (KRUN) 20 MEQ in IV 1 EA IV ONE ×2 (09:00)
[2022-10-01] MEDS: ENOXAPARIN 40MG/0.4ML SYRINGE (J1650 PER 10MG) SC SCH (09:40)
[2022-10-01] MEDS: PANTOPRAZOLE 40MG VIAL IV SCH (09:40)
[2022-10-01] MEDS: CHLORHEXIDINE GLUCONATE 0.12 % 15ML UDC (PERIDEX ORAL RINSE) MT SCH ×2 (09:42→20:31)
[2022-10-01] MEDS ORDERED: PIPERACILLIN/TAZOBACTAM SOD 3.375 GM in D5W MINI-BAG PLUS 50 ML IV SCH (17:00)
[2022-10-01] MEDS: ALBUTEROL SULFATE 2.5MG/0.5ML INH NEB SOLN NEB PRN (23:13)
[2022-10-01] MEDS ORDERED: MIDAZOLAM INJ 2MG/2ML VIAL IV ONE (23:30)
[2022-10-01] MEDS ORDERED: MORPHINE 4 MG/ML 1ML VIAL IV ONE (23:30)
[2022-10-02] VITALS (27 sets, daily range): BP systolic 122–168; BP diastolic 57–90; TEMP 97–100.7; O2SAT 92–100
[2022-10-02] MEDS ORDERED: HYDROMORPHONE HCL 0.5 MG/ 0.5 ML SYRINGE IV PRN
[2022-10-02] MEDS ORDERED: MIDAZOLAM 100MG/100ML-0.9%NACL 100 MG in IV 1 EA IV SCH ×2
[2022-10-02] MEDS: PHENYTOIN 100MG/2ML VIAL IV SCH ×3 (00:50→17:07)
[2022-10-02 02:28] LABS: ALBUMIN 1.9 G/DL (3.2-5.2); ALKALINE PHOSPHATASE 112 U/L (46-116); ALT/SGPT 19 U/L (7.0-40); AST/SGOT 42 U/L (<34); BILIRUBIN,TOTAL 0.3 MG/DL (0.3-1.2); BLOOD UREA NITROGEN 7 MG/DL (9-23); CALCIUM LEVEL 7.8 MG/DL (8.3-10.6); CARBON DIOXIDE LEVEL 24 MMOL/L (20-31); CHLORIDE LEVEL 110 MMOL/L (98-107); CREATININE FOR GFR 0.66 MG/DL (0.70-1.30); GLOMERULAR FILTRATION RATE > 60.0 (>49); GLUCOSE, FASTING 136 MG/DL (74-106); MAGNESIUM LEVEL 1.7 MG/DL (1.8-2.4); SODIUM LEVEL 144 MMOL/L (136-145); TOTAL PROTEIN 5.6 G/DL (5.7-8.2)
[2022-10-02] MEDS ORDERED: MAG SULF 1GM/100ML (MAG RUN) 1 GM in IV 1 EA IV ONE (02:30)
[2022-10-02] MEDS: levETIRAcetam INJection 1,000 MG in D5W 100 ML IV SCH ×2 (04:52→16:07)
[2022-10-02 05:04] LABS: HEMATOCRIT 26.9 % (42.0-52.0); HEMOGLOBIN 8.4 g/dl (13.5-17.5); MEAN CORPUSCULAR HEMOGLOBIN 31.3 pg (27.0-33.0); MEAN CORPUSCULAR HGB CONC 31.2 g/dl (32.0-36.5); MEAN CORPUSCULAR VOLUME 100.4 fl (80.0-96.0); PLATELET COUNT, AUTOMATED 171 10^3/uL (150-450); RED BLOOD COUNT 2.68 10^6/uL (4.30-6.10); WHITE BLOOD COUNT 10.2 10^3/uL (4.0-10.0)
[2022-10-02 05:43] LABS: ALBUMIN 1.9 G/DL (3.2-5.2); ALKALINE PHOSPHATASE 113 U/L (46-116); ALT/SGPT 19 U/L (7.0-40); AST/SGOT 35 U/L (<34); BILIRUBIN,TOTAL 0.4 MG/DL (0.3-1.2); BLOOD UREA NITROGEN 8 MG/DL (9-23); CARBON DIOXIDE LEVEL 25 MMOL/L (20-31); CHLORIDE LEVEL 111 MMOL/L (98-107); CREATININE FOR GFR 0.66 MG/DL (0.70-1.30); GLOMERULAR FILTRATION RATE > 60.0 (>49); GLUCOSE, FASTING 119 MG/DL (74-106); MAGNESIUM LEVEL 1.8 MG/DL (1.8-2.4); POTASSIUM SERUM 3.6 MMOL/L (3.5-5.1); SODIUM LEVEL 144 MMOL/L (136-145); TOTAL PROTEIN 5.5 G/DL (5.7-8.2)
[2022-10-02 05:57] LABS: ABG BASE EXCESS -0.1 (-2.0-2.0); ABG HCO3 23.2 MMOL/L (22.0-26.0); ABG O2 SATURATION 97.4 % (95.0-99.0); ABG PARTIAL PRESSURE CO2 32.3 mmHg (35.0-45.0); ABG PARTIAL PRESSURE O2 98.4 mmHg (75.0-100.0); ABG STANDARD HCO3 24.5 MMOL/L. (22.0-26.0); ABG TOTAL CO2 24.2 MMOL/L (23.0-31.0); ABG pH (ARTERIAL) 7.474 UNITS (7.350-7.450)
[2022-10-02] MEDS: dexmedeTOMidine 200 MCG in IV 1 EA IV SCH ×2 (08:05→10:32)
[2022-10-02] MEDS: fentaNYL CITRATE/NaCl 1,000 MCG in IV 1 EA IV SCH (09:07)
[2022-10-02] MEDS: PANTOPRAZOLE 40MG VIAL IV SCH (09:08)
[2022-10-02] MEDS: ENOXAPARIN 40MG/0.4ML SYRINGE (J1650 PER 10MG) SC SCH (09:17)
[2022-10-02] MEDS: CHLORHEXIDINE GLUCONATE 0.12 % 15ML UDC (PERIDEX ORAL RINSE) MT SCH (09:18)
[2022-10-02] MEDS ORDERED: FUROSEMIDE 40MG/4ML VIAL IV ONE (11:15)
[2022-10-02] MEDS: ALBUTEROL SULFATE 2.5MG/0.5ML INH NEB SOLN NEB PRN (11:31)
[2022-10-02] MEDS ORDERED: KETOROLAC 30 MG/ML 1ML VIAL IV PRN (13:40)
[2022-10-02] MEDS: SODIUM CHLORIDE HYPERTONIC 3% 4ML NEB SOL INH SCH ×2 (13:45→20:29)
[2022-10-02] MEDS: ALBUTEROL SULFATE 2.5MG/0.5ML INH NEB SOLN NEB SCH ×2 (13:45→20:29)
[2022-10-02] MEDS ORDERED: LIDOCAINE 1% MDV 20ML VIAL As Ordered ONE (16:13)
[2022-10-02] MEDS ORDERED: SODIUM CHLORIDE 0.9% INJ 10 ML SYR IV PRN (18:00)
[2022-10-02] MEDS: SODIUM CHLORIDE 0.9% INJ 10 ML SYR IV SCH ×2 (18:00→19:40)
[2022-10-03] VITALS (13 sets, daily range): BP systolic 126–163; BP diastolic 55–81; TEMP 98.8–99.9; O2SAT 93–100
[2022-10-03] MEDS: PHENYTOIN 100MG/2ML VIAL IV SCH ×3 (00:25→17:26)
[2022-10-03] MEDS: ALBUTEROL SULFATE 2.5MG/0.5ML INH NEB SOLN NEB SCH ×4 (01:21→19:50)
[2022-10-03] MEDS: SODIUM CHLORIDE HYPERTONIC 3% 4ML NEB SOL INH SCH ×3 (01:22→14:00)
[2022-10-03] MEDS: levETIRAcetam INJection 1,000 MG in D5W 100 ML IV SCH ×2 (04:28→16:25)
[2022-10-03 05:05] LABS: ALBUMIN 1.8 G/DL (3.2-5.2); ALKALINE PHOSPHATASE 123 U/L (46-116); ALT/SGPT 16 U/L (7.0-40); AST/SGOT 21 U/L (<34); BILIRUBIN,TOTAL 0.4 MG/DL (0.3-1.2); BLOOD UREA NITROGEN 9 MG/DL (9-23); CALCIUM LEVEL 7.8 MG/DL (8.3-10.6); CARBON DIOXIDE LEVEL 25 MMOL/L (20-31); CHLORIDE LEVEL 110 MMOL/L (98-107); GLOMERULAR FILTRATION RATE > 60.0 (>49); GLUCOSE, FASTING 155 MG/DL (74-106); MAGNESIUM LEVEL 1.7 MG/DL (1.8-2.4); POTASSIUM SERUM 3.4 MMOL/L (3.5-5.1); SODIUM LEVEL 147 MMOL/L (136-145); TOTAL PROTEIN 5.4 G/DL (5.7-8.2)
[2022-10-03 05:09] LABS: HEMOGLOBIN 8.5 g/dl (13.5-17.5); MEAN CORPUSCULAR HEMOGLOBIN 31.4 pg (27.0-33.0); MEAN CORPUSCULAR HGB CONC 31.5 g/dl (32.0-36.5); MEAN CORPUSCULAR VOLUME 99.6 fl (80.0-96.0); PLATELET COUNT, AUTOMATED 208 10^3/uL (150-450); RED BLOOD COUNT 2.71 10^6/uL (4.30-6.10)
[2022-10-03] MEDS: SODIUM CHLORIDE 0.9% INJ 10 ML SYR IV SCH ×4 (06:29→18:00)
[2022-10-03] MEDS ORDERED: MAG SULF 1GM/100ML (MAG RUN) 1 GM in IV 1 EA IV ONE (07:00)
[2022-10-03] MEDS: KCL 10MEQ/100ML SWI (KRUN) 10 MEQ in IV 1 EA IV SCH ×2 (07:11→08:27)
[2022-10-03] MEDS: PANTOPRAZOLE 40MG VIAL IV SCH (08:27)
[2022-10-03] MEDS: ENOXAPARIN 40MG/0.4ML SYRINGE (J1650 PER 10MG) SC SCH (08:33)
[2022-10-03] MEDS: PIPERACILLIN/TAZOBACTAM SOD 4.5 GM in D5W MINI-BAG PLUS 50 ML IV SCH ×3 (09:00→20:18)
[2022-10-03] MEDS: NS 0.45% 1,000 ML IV SCH (09:01)
[2022-10-03] MEDS: ACETAMINOPHEN *IV* 1,000 MG in IV 1 EA IV PRN (09:48)
[2022-10-03] MEDS: SODIUM CHLORIDE HYPERTONIC 3% 15ML NEB SOL INH SCH (19:50)
[2022-10-04] VITALS (12 sets, daily range): BP systolic 93–167; BP diastolic 61–75; TEMP 98.3–99.5; O2SAT 92–96
[2022-10-04] MEDS: NS 0.45% 1,000 ML IV SCH ×2 (00:07→13:42)
[2022-10-04] MEDS: PHENYTOIN 100MG/2ML VIAL IV SCH ×3 (00:26→18:46)
[2022-10-04] MEDS: ACETAMINOPHEN *IV* 1,000 MG in IV 1 EA IV PRN ×2 (00:34→17:43)
[2022-10-04] MEDS: ALBUTEROL SULFATE 2.5MG/0.5ML INH NEB SOLN NEB SCH ×4 (01:20→19:17)
[2022-10-04] MEDS: SODIUM CHLORIDE HYPERTONIC 3% 15ML NEB SOL INH SCH ×4 (01:20→19:17)
[2022-10-04] MEDS: PIPERACILLIN/TAZOBACTAM SOD 4.5 GM in D5W MINI-BAG PLUS 50 ML IV SCH ×4 (02:20→21:05)
[2022-10-04] MEDS: levETIRAcetam INJection 1,000 MG in D5W 100 ML IV SCH ×2 (04:05→16:51)
[2022-10-04 04:41] LABS: HEMATOCRIT 27.3 % (42.0-52.0); HEMOGLOBIN 8.7 g/dl (13.5-17.5); MEAN CORPUSCULAR HEMOGLOBIN 31.8 pg (27.0-33.0); MEAN CORPUSCULAR HGB CONC 31.9 g/dl (32.0-36.5); MEAN CORPUSCULAR VOLUME 99.6 fl (80.0-96.0); PLATELET COUNT, AUTOMATED 216 10^3/uL (150-450); RED BLOOD COUNT 2.74 10^6/uL (4.30-6.10); WHITE BLOOD COUNT 12.3 10^3/uL (4.0-10.0)
[2022-10-04 04:56] LABS: ALBUMIN 1.9 G/DL (3.2-5.2); ALKALINE PHOSPHATASE 124 U/L (46-116); ALT/SGPT 22 U/L (7.0-40); AST/SGOT 38 U/L (<34); BILIRUBIN,TOTAL 0.4 MG/DL (0.3-1.2); BLOOD UREA NITROGEN 6 MG/DL (9-23); CALCIUM LEVEL 7.8 MG/DL (8.3-10.6); CARBON DIOXIDE LEVEL 24 MMOL/L (20-31); CHLORIDE LEVEL 110 MMOL/L (98-107); CREATININE FOR GFR 0.67 MG/DL (0.70-1.30); GLOMERULAR FILTRATION RATE > 60.0 (>49); GLUCOSE, FASTING 154 MG/DL (74-106); POTASSIUM SERUM 3.1 MMOL/L (3.5-5.1); SODIUM LEVEL 145 MMOL/L (136-145); TOTAL PROTEIN 5.5 G/DL (5.7-8.2)
[2022-10-04] MEDS: SODIUM CHLORIDE 0.9% INJ 10 ML SYR IV SCH ×4 (06:00→18:50)
[2022-10-04 06:06] LABS: MAGNESIUM LEVEL 1.6 MG/DL (1.8-2.4)
[2022-10-04] MEDS: MAG SULF 1GM/100ML (MAG RUN) 1 GM in IV 1 EA IV SCH ×2 (06:14→07:09)
[2022-10-04] MEDS: KCL 10MEQ/100ML SWI (KRUN) 10 MEQ in IV 1 EA IV SCH ×5 (08:33→18:45)
[2022-10-04] MEDS: PANTOPRAZOLE 40MG VIAL IV SCH (08:33)
[2022-10-04] MEDS: ENOXAPARIN 40MG/0.4ML SYRINGE (J1650 PER 10MG) SC SCH (08:33)
[2022-10-04 13:04] LABS: ABG pH (ARTERIAL) 7.489 UNITS (7.350-7.450)
[2022-10-04 13:05] LABS: ABG BASE EXCESS 0.1 (-2.0-2.0); ABG PARTIAL PRESSURE O2 81.1 mmHg (75.0-100.0); ABG STANDARD HCO3 24.6 MMOL/L. (22.0-26.0)
[2022-10-04 14:05] LABS: BASO % 0.2 % (0.0-1.0); EOS # 0.2 10^3/uL (0.0-0.5); EOS % 1.6 % (0.0-3.0); HEMATOCRIT 27.3 % (42.0-52.0); HEMOGLOBIN 8.6 g/dl (13.5-17.5); LYMPH # 1.1 10^3/uL (1.5-5.0); LYMPH % 10.8 % (24.0-44.0); MEAN CORPUSCULAR HEMOGLOBIN 31.4 pg (27.0-33.0); MEAN CORPUSCULAR HGB CONC 31.5 g/dl (32.0-36.5); MEAN CORPUSCULAR VOLUME 99.6 fl (80.0-96.0); MONO # 0.6 10^3/uL (0.0-0.8); MONO % 6.1 % (2.0-8.0); NEUTROPHILS # 8.2 10^3/uL (1.5-8.5); NEUTROPHILS % 80.2 % (36.0-66.0); PLATELET COUNT, AUTOMATED 229 10^3/uL (150-450); RED BLOOD COUNT 2.74 10^6/uL (4.30-6.10); WHITE BLOOD COUNT 10.2 10^3/uL (4.0-10.0)
[2022-10-04 15:51] LABS: ALBUMIN 1.9 G/DL (3.2-5.2); ALKALINE PHOSPHATASE 121 U/L (46-116); ALT/SGPT 21 U/L (7.0-40); AST/SGOT 38 U/L (<34); BILIRUBIN,TOTAL 0.3 MG/DL (0.3-1.2); BLOOD UREA NITROGEN < 5 MG/DL (9-23); CALCIUM LEVEL 7.8 MG/DL (8.3-10.6); CARBON DIOXIDE LEVEL 22 MMOL/L (20-31); CHLORIDE LEVEL 111 MMOL/L (98-107); CPK CREATINE PHOSPHOKINASE 75 U/L (46-171); CREATININE FOR GFR 0.62 MG/DL (0.70-1.30); GLOMERULAR FILTRATION RATE > 60.0 (>49); GLUCOSE, FASTING 147 MG/DL (74-106); MAGNESIUM LEVEL 1.7 MG/DL (1.8-2.4); MB/CK RELATIVE INDEX 1.33 (< OR =4); POTASSIUM SERUM 3.4 MMOL/L (3.5-5.1); SODIUM LEVEL 141 MMOL/L (136-145); TOTAL PROTEIN 5.7 G/DL (5.7-8.2)
[2022-10-04] MEDS ORDERED: MAG SULF 1GM/100ML (MAG RUN) 1 GM in IV 1 EA IV ONE (16:00)
[2022-10-05] MEDS: ALBUTEROL SULFATE 2.5MG/0.5ML INH NEB SOLN NEB SCH ×4 (00:36→19:35)
[2022-10-05] MEDS: SODIUM CHLORIDE HYPERTONIC 3% 15ML NEB SOL INH SCH ×4 (00:36→19:35)
[2022-10-05] MEDS: PHENYTOIN 100MG/2ML VIAL IV SCH ×3 (01:24→17:44)
[2022-10-05] MEDS: ACETAMINOPHEN *IV* 1,000 MG in IV 1 EA IV PRN ×2 (01:25→17:43)
[2022-10-05] MEDS: PIPERACILLIN/TAZOBACTAM SOD 4.5 GM in D5W MINI-BAG PLUS 50 ML IV SCH ×4 (03:05→20:28)
[2022-10-05 03:54] VITALS: BP 152/70; TEMP 98; O2SAT 92
[2022-10-05] MEDS: levETIRAcetam INJection 1,000 MG in D5W 100 ML IV SCH ×2 (04:50→17:44)
[2022-10-05] MEDS: SODIUM CHLORIDE 0.9% INJ 10 ML SYR IV SCH ×4 (04:53→18:00)
[2022-10-05 05:09] LABS: BASO % 0.4 % (0.0-1.0); EOS # 0.2 10^3/uL (0.0-0.5); EOS % 2.3 % (0.0-3.0); HEMATOCRIT 27.7 % (42.0-52.0); HEMOGLOBIN 8.8 g/dl (13.5-17.5); LYMPH # 1.3 10^3/uL (1.5-5.0); LYMPH % 13.6 % (24.0-44.0); MEAN CORPUSCULAR HEMOGLOBIN 31.1 pg (27.0-33.0); MEAN CORPUSCULAR HGB CONC 31.8 g/dl (32.0-36.5); MEAN CORPUSCULAR VOLUME 97.9 fl (80.0-96.0); MONO # 0.7 10^3/uL (0.0-0.8); MONO % 7.2 % (2.0-8.0); NEUTROPHILS # 7.4 10^3/uL (1.5-8.5); NEUTROPHILS % 75.8 % (36.0-66.0); PLATELET COUNT, AUTOMATED 237 10^3/uL (150-450); RED BLOOD COUNT 2.83 10^6/uL (4.30-6.10); WHITE BLOOD COUNT 9.7 10^3/uL (4.0-10.0)
[2022-10-05] MEDS ORDERED: ALBUTEROL 90 MCG/ACT 8GM HFA INHALER INH PRN (05:15)
[2022-10-05 05:36] LABS: ALBUMIN 1.9 G/DL (3.2-5.2); ALKALINE PHOSPHATASE 114 U/L (46-116); ALT/SGPT 19 U/L (7.0-40); AST/SGOT 27 U/L (<34); BILIRUBIN,TOTAL 0.3 MG/DL (0.3-1.2); BLOOD UREA NITROGEN 6 MG/DL (9-23); CALCIUM LEVEL 7.8 MG/DL (8.3-10.6); CARBON DIOXIDE LEVEL 23 MMOL/L (20-31); CHLORIDE LEVEL 110 MMOL/L (98-107); CREATININE FOR GFR 0.65 MG/DL (0.70-1.30); GLOMERULAR FILTRATION RATE > 60.0 (>49); GLUCOSE, FASTING 144 MG/DL (74-106); SODIUM LEVEL 143 MMOL/L (136-145); TOTAL PROTEIN 5.5 G/DL (5.7-8.2)
[2022-10-05 07:34] VITALS: BP 148/69; TEMP 98.7; O2SAT 93
[2022-10-05 08:56] LABS: MAGNESIUM LEVEL 1.7 MG/DL (1.8-2.4)
[2022-10-05] MEDS: NS 0.45% 1,000 ML IV SCH ×2 (09:17→13:50)
[2022-10-05] MEDS: KCL 10MEQ/100ML SWI (KRUN) 10 MEQ in IV 1 EA IV SCH ×2 (09:18→10:49)
[2022-10-05] MEDS: PANTOPRAZOLE 40MG VIAL IV SCH (10:49)
[2022-10-05] MEDS: ENOXAPARIN 40MG/0.4ML SYRINGE (J1650 PER 10MG) SC SCH (10:51)
[2022-10-05] MEDS: SODIUM CHLORIDE 0.9% INJ 10 ML SYR IV PRN (11:06)
[2022-10-05 11:35] VITALS: BP 143/66; TEMP 97.9; O2SAT 95
[2022-10-05 11:36] LABS: ABG pH (ARTERIAL) 7.427 UNITS (7.350-7.450)
[2022-10-05 11:37] LABS: ABG BASE EXCESS -2.9 (-2.0-2.0); ABG HCO3 20.8 MMOL/L (22.0-26.0); ABG O2 SATURATION 91.9 % (95.0-99.0); ABG PARTIAL PRESSURE CO2 32.3 mmHg (35.0-45.0); ABG STANDARD HCO3 21.9 MMOL/L. (22.0-26.0); ABG TOTAL CO2 21.8 MMOL/L (23.0-31.0)
[2022-10-05] MEDS: MAG SULF 1GM/100ML (MAG RUN) 1 GM in IV 1 EA IV SCH ×2 (13:40→14:33)
[2022-10-05 15:42] VITALS: BP 157/75; TEMP 98.9; O2SAT 94
[2022-10-05 18:33] LABS: BLOOD UREA NITROGEN < 5 MG/DL (9-23); CARBON DIOXIDE LEVEL 24 MMOL/L (20-31); CHLORIDE LEVEL 108 MMOL/L (98-107); GLOMERULAR FILTRATION RATE > 60.0 (>49); GLUCOSE, FASTING 131 MG/DL (74-106); MAGNESIUM LEVEL 1.9 MG/DL (1.8-2.4); POTASSIUM SERUM 3.1 MMOL/L (3.5-5.1); SODIUM LEVEL 142 MMOL/L (136-145)
[2022-10-05] MEDS ORDERED: POTASSIUM CHLORIDE 10% LIQ 20MEQ/15ML UDC PO ONE (18:35)
[2022-10-05 20:00] VITALS: BP 146/68; TEMP 97.7; O2SAT 97
[2022-10-05] MEDS: guaiFENesin SYRUP 200MG 10ML UDC PO PRN (21:04)
[2022-10-05 23:42] VITALS: BP 152/75; TEMP 97.8; O2SAT 95
[2022-10-06] MEDS: PHENYTOIN 100MG/2ML VIAL IV SCH ×3 (02:06→18:52)
[2022-10-06] MEDS: NS 0.45% 1,000 ML IV SCH ×2 (02:12→17:10)
[2022-10-06] MEDS: ALBUTEROL SULFATE 2.5MG/0.5ML INH NEB SOLN NEB SCH ×4 (02:52→21:19)
[2022-10-06] MEDS: SODIUM CHLORIDE HYPERTONIC 3% 15ML NEB SOL INH SCH ×4 (02:53→21:19)
[2022-10-06] MEDS: PIPERACILLIN/TAZOBACTAM SOD 4.5 GM in D5W MINI-BAG PLUS 50 ML IV SCH ×4 (03:17→21:23)
[2022-10-06] MEDS: levETIRAcetam INJection 1,000 MG in D5W 100 ML IV SCH ×2 (03:39→17:10)
[2022-10-06 04:00] VITALS: BP 139/80; TEMP 98.4; O2SAT 94
[2022-10-06] MEDS: SODIUM CHLORIDE 0.9% INJ 10 ML SYR IV SCH ×4 (05:06→17:14)
[2022-10-06 08:12] LABS: BASO # 0.1 10^3/uL (0.0-0.2); BASO % 0.8 % (0.0-1.0); EOS # 0.2 10^3/uL (0.0-0.5); HEMATOCRIT 30.4 % (42.0-52.0); HEMOGLOBIN 9.5 g/dl (13.5-17.5); LYMPH # 1.2 10^3/uL (1.5-5.0); LYMPH % 14.1 % (24.0-44.0); MEAN CORPUSCULAR HEMOGLOBIN 31.8 pg (27.0-33.0); MEAN CORPUSCULAR HGB CONC 31.3 g/dl (32.0-36.5); MEAN CORPUSCULAR VOLUME 101.7 fl (80.0-96.0); MONO # 0.6 10^3/uL (0.0-0.8); MONO % 7.5 % (2.0-8.0); NEUTROPHILS # 6.3 10^3/uL (1.5-8.5); NEUTROPHILS % 74.8 % (36.0-66.0); RED BLOOD COUNT 2.99 10^6/uL (4.30-6.10); WHITE BLOOD COUNT 8.4 10^3/uL (4.0-10.0)
[2022-10-06 08:14] VITALS: BP 159/67; TEMP 98.5; O2SAT 96
[2022-10-06 09:08] LABS: ALKALINE PHOSPHATASE 128 U/L (46-116); ALT/SGPT 15 U/L (7.0-40); AST/SGOT 28 U/L (<34); BILIRUBIN,TOTAL 0.3 MG/DL (0.3-1.2); BLOOD UREA NITROGEN < 5 MG/DL (9-23); CALCIUM LEVEL 7.9 MG/DL (8.3-10.6); CARBON DIOXIDE LEVEL 21 MMOL/L (20-31); CHLORIDE LEVEL 110 MMOL/L (98-107); GLOMERULAR FILTRATION RATE > 60.0 (>49); GLUCOSE, FASTING 130 MG/DL (74-106); POTASSIUM SERUM 3.3 MMOL/L (3.5-5.1); SODIUM LEVEL 143 MMOL/L (136-145); TOTAL PROTEIN 5.9 G/DL (5.7-8.2)
[2022-10-06] MEDS: ENOXAPARIN 40MG/0.4ML SYRINGE (J1650 PER 10MG) SC SCH (09:45)
[2022-10-06] MEDS: PANTOPRAZOLE 40MG VIAL IV SCH (09:45)
[2022-10-06 11:15] LABS: MAGNESIUM LEVEL 1.7 MG/DL (1.8-2.4)
[2022-10-06 11:36] VITALS: BP 161/65; TEMP 98.3; O2SAT 95
[2022-10-06] MEDS ORDERED: POTASSIUM CHLORIDE 10% LIQ 20MEQ/15ML UDC PO ONE (12:00)
[2022-10-06] MEDS: guaiFENesin SYRUP 200MG 10ML UDC PO PRN ×2 (12:41→21:23)
[2022-10-06] MEDS: MAG SULF 1GM/100ML (MAG RUN) 1 GM in IV 1 EA IV SCH ×2 (15:16→16:25)
[2022-10-06 16:00] VITALS: BP 160/71; TEMP 98.6; O2SAT 92
[2022-10-06] MEDS: ACETAMINOPHEN *IV* 1,000 MG in IV 1 EA IV PRN (16:27)
[2022-10-06 20:00] VITALS: BP 145/62; TEMP 97.5; O2SAT 93
[2022-10-06] MEDS: RAMELTEON 8 MG TAB (ROZEREM) PO SCH (21:22)
[2022-10-07] VITALS: BP 151/72; TEMP 98.4; O2SAT 90
[2022-10-07] MEDS: PHENYTOIN 100MG/2ML VIAL IV SCH ×2 (00:08→09:17)
[2022-10-07] MEDS: SODIUM CHLORIDE HYPERTONIC 3% 15ML NEB SOL INH SCH ×2 (02:34→08:25)
[2022-10-07] MEDS: ALBUTEROL SULFATE 2.5MG/0.5ML INH NEB SOLN NEB SCH ×2 (02:34→08:25)
[2022-10-07] MEDS: levETIRAcetam INJection 1,000 MG in D5W 100 ML IV SCH (03:54)
[2022-10-07 04:00] VITALS: BP 137/65; TEMP 98.3; O2SAT 96
[2022-10-07] MEDS: PIPERACILLIN/TAZOBACTAM SOD 4.5 GM in D5W MINI-BAG PLUS 50 ML IV SCH ×2 (04:02→09:17)
[2022-10-07 04:55] LABS: BASO # 0.1 10^3/uL (0.0-0.2); BASO % 0.6 % (0.0-1.0); EOS # 0.2 10^3/uL (0.0-0.5); EOS % 2.4 % (0.0-3.0); HEMATOCRIT 29.2 % (42.0-52.0); LYMPH # 1.2 10^3/uL (1.5-5.0); LYMPH % 14.4 % (24.0-44.0); MEAN CORPUSCULAR HEMOGLOBIN 30.2 pg (27.0-33.0); MEAN CORPUSCULAR HGB CONC 30.8 g/dl (32.0-36.5); MONO # 0.6 10^3/uL (0.0-0.8); MONO % 7.6 % (2.0-8.0); NEUTROPHILS # 6.3 10^3/uL (1.5-8.5); NEUTROPHILS % 73.9 % (36.0-66.0); PLATELET COUNT, AUTOMATED 288 10^3/uL (150-450); RED BLOOD COUNT 2.98 10^6/uL (4.30-6.10); WHITE BLOOD COUNT 8.5 10^3/uL (4.0-10.0)
[2022-10-07 05:16] LABS: ALBUMIN 1.8 G/DL (3.2-5.2); ALKALINE PHOSPHATASE 118 U/L (46-116); ALT/SGPT 11 U/L (7.0-40); AST/SGOT 17 U/L (<34); BILIRUBIN,TOTAL 0.3 MG/DL (0.3-1.2); BLOOD UREA NITROGEN < 5 MG/DL (9-23); CALCIUM LEVEL 7.8 MG/DL (8.3-10.6); CARBON DIOXIDE LEVEL 22 MMOL/L (20-31); CHLORIDE LEVEL 111 MMOL/L (98-107); CREATININE FOR GFR 0.57 MG/DL (0.70-1.30); GLOMERULAR FILTRATION RATE > 60.0 (>49); GLUCOSE, FASTING 150 MG/DL (74-106); MAGNESIUM LEVEL 1.7 MG/DL (1.8-2.4); SODIUM LEVEL 143 MMOL/L (136-145); TOTAL PROTEIN 5.3 G/DL (5.7-8.2)
[2022-10-07] MEDS: SODIUM CHLORIDE 0.9% INJ 10 ML SYR IV SCH ×4 (05:58→18:43)
[2022-10-07] MEDS ORDERED: POTASSIUM CHLORIDE 10MEQ SR TABLET PO ONE ×2 (06:00→10:40)
[2022-10-07] MEDS ORDERED: MAGNESIUM OXIDE 400MG TAB (MAG-OX) PO ONE (06:00)
[2022-10-07] MEDS: guaiFENesin SYRUP 200MG 10ML UDC PO PRN ×2 (06:56→14:44)
[2022-10-07 07:57] VITALS: BP 147/69; O2SAT 94
[2022-10-07] MEDS ORDERED: POTASSIUM CHLORIDE 10MEQ SR TABLET PO SCH (09:00)
[2022-10-07] MEDS: FINASTERIDE 5MG TAB PO SCH (09:00)
[2022-10-07] MEDS: NS 0.45% 1,000 ML IV SCH (09:16)
[2022-10-07] MEDS: ACETAMINOPHEN *IV* 1,000 MG in IV 1 EA IV PRN (09:17)
[2022-10-07] MEDS: PANTOPRAZOLE 40MG VIAL IV SCH (09:17)
[2022-10-07] MEDS: ENOXAPARIN 40MG/0.4ML SYRINGE (J1650 PER 10MG) SC SCH (09:17)
[2022-10-07] MEDS ORDERED: MORPHINE 4 MG/ML 1ML VIAL As Ordered ONE (10:55)
[2022-10-07] MEDS ORDERED: MORPHINE 4 MG/ML 1ML VIAL IV ONE (11:30)
[2022-10-07 11:55] VITALS: BP 135/63; TEMP 97.5; O2SAT 96
[2022-10-07] MEDS: NORCO, ANEXSIA 5/325MG TABLET (HYDROcodone/ACETAMINOPHEN) PO PRN ×2 (12:25→20:57)
[2022-10-07] MEDS: SPIRONOLACTONE 25 MG TAB PO SCH (14:42)
[2022-10-07] MEDS: TORSEMIDE 20 MG TAB PO SCH ×2 (14:42→20:57)
[2022-10-07] MEDS: allopurinoL 100 MG TAB PO SCH ×2 (14:43→20:56)
[2022-10-07 18:25] LABS: BLOOD UREA NITROGEN < 5 MG/DL (9-23); CALCIUM LEVEL 7.8 MG/DL (8.3-10.6); CARBON DIOXIDE LEVEL 24 MMOL/L (20-31); CHLORIDE LEVEL 109 MMOL/L (98-107); CREATININE FOR GFR 0.62 MG/DL (0.70-1.30); GLOMERULAR FILTRATION RATE > 60.0 (>49); GLUCOSE, FASTING 174 MG/DL (74-106); MAGNESIUM LEVEL 1.5 MG/DL (1.8-2.4); POTASSIUM SERUM 3.6 MMOL/L (3.5-5.1); SODIUM LEVEL 141 MMOL/L (136-145)
[2022-10-07] MEDS: PHENYTOIN 50MG CHEW TABLET PO SCH ×2 (18:42→20:56)
[2022-10-07] MEDS: GABAPENTIN 300 MG CAP PO SCH ×2 (18:42→20:56)
[2022-10-07 20:00] VITALS: BP 141/63; TEMP 98.8; O2SAT 97
[2022-10-07] MEDS: MAG SULF 1GM/100ML (MAG RUN) 1 GM in IV 1 EA IV SCH ×2 (20:53→21:41)
[2022-10-07] MEDS: levETIRAcetam 250MG TABLET (KEPPRA) PO SCH (20:56)
[2022-10-07] MEDS: RAMELTEON 8 MG TAB (ROZEREM) PO SCH (20:56)
[2022-10-08] MEDS: guaiFENesin SYRUP 200MG 10ML UDC PO PRN ×2 (00:37→19:03)
[2022-10-08 00:46] LABS: MAGNESIUM LEVEL 1.7 MG/DL (1.8-2.4); POTASSIUM SERUM 3.3 MMOL/L (3.5-5.1)
[2022-10-08] MEDS ORDERED: MAG SULF 1GM/100ML (MAG RUN) 1 GM in IV 1 EA IV ONE (03:00)
[2022-10-08 04:00] VITALS: BP 144/63; TEMP 98; O2SAT 96
[2022-10-08 05:13] LABS: BASO # 0.1 10^3/uL (0.0-0.2); BASO % 0.5 % (0.0-1.0); EOS # 0.2 10^3/uL (0.0-0.5); EOS % 1.7 % (0.0-3.0); HEMATOCRIT 30.7 % (42.0-52.0); HEMOGLOBIN 9.6 g/dl (13.5-17.5); LYMPH # 1.3 10^3/uL (1.5-5.0); LYMPH % 13.9 % (24.0-44.0); MEAN CORPUSCULAR HEMOGLOBIN 30.5 pg (27.0-33.0); MEAN CORPUSCULAR HGB CONC 31.3 g/dl (32.0-36.5); MEAN CORPUSCULAR VOLUME 97.5 fl (80.0-96.0); MONO # 0.7 10^3/uL (0.0-0.8); MONO % 7.7 % (2.0-8.0); NEUTROPHILS # 6.9 10^3/uL (1.5-8.5); NEUTROPHILS % 75.5 % (36.0-66.0); PLATELET COUNT, AUTOMATED 306 10^3/uL (150-450); RED BLOOD COUNT 3.15 10^6/uL (4.30-6.10); WHITE BLOOD COUNT 9.2 10^3/uL (4.0-10.0)
[2022-10-08 05:25] LABS: BLOOD UREA NITROGEN < 5 MG/DL (9-23); CARBON DIOXIDE LEVEL 28 MMOL/L (20-31); CHLORIDE LEVEL 108 MMOL/L (98-107); CREATININE FOR GFR 0.66 MG/DL (0.70-1.30); GLOMERULAR FILTRATION RATE > 60.0 (>49); GLUCOSE, FASTING 148 MG/DL (74-106); MAGNESIUM LEVEL 1.7 MG/DL (1.8-2.4); POTASSIUM SERUM 3.4 MMOL/L (3.5-5.1); SODIUM LEVEL 144 MMOL/L (136-145)
[2022-10-08] MEDS: SODIUM CHLORIDE 0.9% INJ 10 ML SYR IV SCH ×4 (06:27→18:08)
[2022-10-08] MEDS ORDERED: POTASSIUM CHLORIDE 10MEQ SR TABLET PO ONE (07:00)
[2022-10-08 07:30] VITALS: BP 134/63; TEMP 97.3; O2SAT 97
[2022-10-08] MEDS: MAG SULF 1GM/100ML (MAG RUN) 1 GM in IV 1 EA IV SCH ×4 (07:44→15:22)
[2022-10-08 08:29] LABS: CLOSTRIDIUM DIFFICILE PCR NEGATIVE (NEGATIVE)
[2022-10-08] MEDS: ENOXAPARIN 40MG/0.4ML SYRINGE (J1650 PER 10MG) SC SCH (10:39)
[2022-10-08] MEDS: SPIRONOLACTONE 25 MG TAB PO SCH (10:40)
[2022-10-08] MEDS: PANTOPRAZOLE 40MG TAB (PROTONIX) PO SCH (10:40)
[2022-10-08] MEDS: allopurinoL 100 MG TAB PO SCH ×2 (10:40→20:41)
[2022-10-08] MEDS: NORCO, ANEXSIA 5/325MG TABLET (HYDROcodone/ACETAMINOPHEN) PO PRN ×2 (10:40→15:23)
[2022-10-08] MEDS: levETIRAcetam 250MG TABLET (KEPPRA) PO SCH ×2 (10:40→20:41)
[2022-10-08] MEDS: FINASTERIDE 5MG TAB PO SCH (10:40)
[2022-10-08] MEDS: GABAPENTIN 300 MG CAP PO SCH ×3 (10:40→20:41)
[2022-10-08] MEDS: TORSEMIDE 20 MG TAB PO SCH ×2 (10:41→20:40)
[2022-10-08] MEDS: POTASSIUM CHLORIDE 10MEQ SR TABLET PO SCH (10:44)
[2022-10-08] MEDS: PHENYTOIN 50MG CHEW TABLET PO SCH ×3 (10:44→20:41)
[2022-10-08 15:39] VITALS: BP 133/59; TEMP 97.8; O2SAT 97
[2022-10-08 19:21] LABS: BLOOD UREA NITROGEN 8 MG/DL (9-23); CALCIUM LEVEL 8.3 MG/DL (8.3-10.6); CARBON DIOXIDE LEVEL 26 MMOL/L (20-31); CHLORIDE LEVEL 106 MMOL/L (98-107); CREATININE FOR GFR 0.78 MG/DL (0.70-1.30); GLOMERULAR FILTRATION RATE > 60.0 (>49); GLUCOSE, FASTING 186 MG/DL (74-106); MAGNESIUM LEVEL 1.9 MG/DL (1.8-2.4); POTASSIUM SERUM 3.7 MMOL/L (3.5-5.1); SODIUM LEVEL 141 MMOL/L (136-145)
[2022-10-08 20:26] VITALS: BP 126/63; TEMP 98; O2SAT 94
[2022-10-08] MEDS: RAMELTEON 8 MG TAB (ROZEREM) PO SCH (20:41)
[2022-10-09 03:31] VITALS: BP 125/60; TEMP 98; O2SAT 91
[2022-10-09] MEDS: SODIUM CHLORIDE 0.9% INJ 10 ML SYR IV SCH ×4 (06:31→17:04)
[2022-10-09 07:39] VITALS: BP 124/77; TEMP 97.6; O2SAT 95
[2022-10-09 08:31] LABS: BASO # 0.1 10^3/uL (0.0-0.2); BASO % 0.8 % (0.0-1.0); EOS # 0.2 10^3/uL (0.0-0.5); EOS % 2.5 % (0.0-3.0); HEMATOCRIT 33.3 % (42.0-52.0); HEMOGLOBIN 10.6 g/dl (13.5-17.5); LYMPH # 1.5 10^3/uL (1.5-5.0); LYMPH % 19.1 % (24.0-44.0); MEAN CORPUSCULAR HEMOGLOBIN 31.3 pg (27.0-33.0); MEAN CORPUSCULAR HGB CONC 31.8 g/dl (32.0-36.5); MEAN CORPUSCULAR VOLUME 98.2 fl (80.0-96.0); MONO # 0.7 10^3/uL (0.0-0.8); MONO % 9.1 % (2.0-8.0); NEUTROPHILS # 5.3 10^3/uL (1.5-8.5); NEUTROPHILS % 67.5 % (36.0-66.0); PLATELET COUNT, AUTOMATED 326 10^3/uL (150-450); RED BLOOD COUNT 3.39 10^6/uL (4.30-6.10); WHITE BLOOD COUNT 7.9 10^3/uL (4.0-10.0)
[2022-10-09] MEDS: POTASSIUM CHLORIDE 10MEQ SR TABLET PO SCH ×2 (08:48→20:42)
[2022-10-09] MEDS: TAMSULOSIN 0.4 MG CAP PO SCH (08:48)
[2022-10-09] MEDS: ENOXAPARIN 40MG/0.4ML SYRINGE (J1650 PER 10MG) SC SCH (08:48)
[2022-10-09] MEDS: metOLazone 2.5 MG TAB PO SCH (08:49)
[2022-10-09] MEDS: TORSEMIDE 20 MG TAB PO SCH ×2 (08:49→20:39)
[2022-10-09] MEDS: levETIRAcetam 250MG TABLET (KEPPRA) PO SCH ×2 (08:49→20:39)
[2022-10-09] MEDS: GABAPENTIN 300 MG CAP PO SCH ×3 (08:49→20:38)
[2022-10-09] MEDS: SPIRONOLACTONE 25 MG TAB PO SCH (08:50)
[2022-10-09] MEDS: PANTOPRAZOLE 40MG TAB (PROTONIX) PO SCH (08:50)
[2022-10-09] MEDS: allopurinoL 100 MG TAB PO SCH ×2 (08:50→20:38)
[2022-10-09] MEDS: PHENYTOIN 50MG CHEW TABLET PO SCH ×3 (08:50→20:41)
[2022-10-09] MEDS: FINASTERIDE 5MG TAB PO SCH (08:50)
[2022-10-09 08:59] LABS: BLOOD UREA NITROGEN 11 MG/DL (9-23); CALCIUM LEVEL 8.3 MG/DL (8.3-10.6); CARBON DIOXIDE LEVEL 28 MMOL/L (20-31); CHLORIDE LEVEL 106 MMOL/L (98-107); CREATININE FOR GFR 0.79 MG/DL (0.70-1.30); GLOMERULAR FILTRATION RATE > 60.0 (>49); GLUCOSE, FASTING 137 MG/DL (74-106); MAGNESIUM LEVEL 1.6 MG/DL (1.8-2.4); POTASSIUM SERUM 3.6 MMOL/L (3.5-5.1); SODIUM LEVEL 143 MMOL/L (136-145)
[2022-10-09] MEDS: MAG SULF 1GM/100ML (MAG RUN) 1 GM in IV 1 EA IV SCH ×4 (12:08→15:19)
[2022-10-09] MEDS: NORCO, ANEXSIA 5/325MG TABLET (HYDROcodone/ACETAMINOPHEN) PO PRN ×2 (12:28→20:42)
[2022-10-09 14:00] VITALS: BP 114/60; TEMP 98.6; O2SAT 93
[2022-10-09] MEDS: guaiFENesin SYRUP 200MG 10ML UDC PO PRN ×2 (14:11→22:22)
[2022-10-09] MEDS: MAGNESIUM OXIDE 400MG TAB (MAG-OX) PO SCH ×2 (17:03→20:42)
[2022-10-09] MEDS: RAMELTEON 8 MG TAB (ROZEREM) PO SCH (20:38)
[2022-10-09 20:42] VITALS: BP 127/60; TEMP 98.6; O2SAT 95
[2022-10-10 02:35] VITALS: O2SAT 85
[2022-10-10 02:37] VITALS: O2SAT 91
[2022-10-10] MEDS: NORCO, ANEXSIA 5/325MG TABLET (HYDROcodone/ACETAMINOPHEN) PO PRN ×4 (03:27→23:34)
[2022-10-10 05:35] VITALS: BP 111/70; TEMP 98.2; O2SAT 94
[2022-10-10] MEDS: SODIUM CHLORIDE 0.9% INJ 10 ML SYR IV SCH ×4 (05:55→16:57)
[2022-10-10 06:00] LABS: BASO # 0.1 10^3/uL (0.0-0.2); BASO % 0.6 % (0.0-1.0); EOS # 0.2 10^3/uL (0.0-0.5); EOS % 2.1 % (0.0-3.0); HEMATOCRIT 31.5 % (42.0-52.0); HEMOGLOBIN 10.1 g/dl (13.5-17.5); LYMPH # 1.9 10^3/uL (1.5-5.0); LYMPH % 23.4 % (24.0-44.0); MEAN CORPUSCULAR HEMOGLOBIN 30.9 pg (27.0-33.0); MEAN CORPUSCULAR HGB CONC 32.1 g/dl (32.0-36.5); MEAN CORPUSCULAR VOLUME 96.3 fl (80.0-96.0); MONO # 0.8 10^3/uL (0.0-0.8); MONO % 10.3 % (2.0-8.0); NEUTROPHILS % 62.6 % (36.0-66.0); PLATELET COUNT, AUTOMATED 350 10^3/uL (150-450); RED BLOOD COUNT 3.27 10^6/uL (4.30-6.10)
[2022-10-10 06:30] LABS: BLOOD UREA NITROGEN 17 MG/DL (9-23); CALCIUM LEVEL 8.9 MG/DL (8.3-10.6); CARBON DIOXIDE LEVEL 29 MMOL/L (20-31); CHLORIDE LEVEL 102 MMOL/L (98-107); CREATININE FOR GFR 0.91 MG/DL (0.70-1.30); GLOMERULAR FILTRATION RATE > 60.0 (>49); GLUCOSE, FASTING 138 MG/DL (74-106); MAGNESIUM LEVEL 1.8 MG/DL (1.8-2.4); POTASSIUM SERUM 4.2 MMOL/L (3.5-5.1); SODIUM LEVEL 139 MMOL/L (136-145)
[2022-10-10] MEDS: guaiFENesin SYRUP 200MG 10ML UDC PO PRN ×2 (06:59→20:29)
[2022-10-10] MEDS: SPIRONOLACTONE 25 MG TAB PO SCH (09:00)
[2022-10-10] MEDS: TORSEMIDE 20 MG TAB PO SCH ×2 (09:00→20:31)
[2022-10-10] MEDS: POTASSIUM CHLORIDE 10MEQ SR TABLET PO SCH ×2 (09:34→20:30)
[2022-10-10] MEDS: PANTOPRAZOLE 40MG TAB (PROTONIX) PO SCH (09:34)
[2022-10-10] MEDS: MAGNESIUM OXIDE 400MG TAB (MAG-OX) PO SCH ×3 (09:35→20:32)
[2022-10-10] MEDS: FINASTERIDE 5MG TAB PO SCH (09:35)
[2022-10-10] MEDS: levETIRAcetam 250MG TABLET (KEPPRA) PO SCH ×2 (09:35→20:30)
[2022-10-10] MEDS: allopurinoL 100 MG TAB PO SCH ×2 (09:35→20:31)
[2022-10-10] MEDS: GABAPENTIN 300 MG CAP PO SCH ×3 (09:35→20:30)
[2022-10-10] MEDS: TAMSULOSIN 0.4 MG CAP PO SCH (09:35)
[2022-10-10] MEDS: ENOXAPARIN 40MG/0.4ML SYRINGE (J1650 PER 10MG) SC SCH (09:36)
[2022-10-10 09:41] VITALS: BP 110/69
[2022-10-10] MEDS: PHENYTOIN 50MG CHEW TABLET PO SCH ×3 (09:48→20:31)
[2022-10-10] MEDS ORDERED: MORPHINE 2 MG/ML 1ML VIAL IV ONE (10:00)
[2022-10-10] MEDS: SODIUM CHLORIDE 0.9% INJ 10 ML SYR IV PRN (10:53)
[2022-10-10] MEDS ORDERED: NORCO, ANEXSIA 5/325MG TABLET (HYDROcodone/ACETAMINOPHEN) PO ONE (18:30)
[2022-10-10] MEDS: RAMELTEON 8 MG TAB (ROZEREM) PO SCH (20:31)
[2022-10-10] MEDS: MIRTAZAPINE 15 MG TAB PO SCH (20:31)
[2022-10-11] MEDS: SODIUM CHLORIDE 0.9% INJ 10 ML SYR IV SCH ×4 (05:38→18:05)
[2022-10-11 06:00] VITALS: BP 113/64; TEMP 97; O2SAT 93
[2022-10-11] MEDS: SPIRONOLACTONE 25 MG TAB PO SCH (09:00)
[2022-10-11] MEDS: TORSEMIDE 20 MG TAB PO SCH ×2 (09:00→21:20)
[2022-10-11] MEDS: ENOXAPARIN 40MG/0.4ML SYRINGE (J1650 PER 10MG) SC SCH (09:32)
[2022-10-11] MEDS: PHENYTOIN 50MG CHEW TABLET PO SCH ×3 (09:33→21:19)
[2022-10-11] MEDS: PANTOPRAZOLE 40MG TAB (PROTONIX) PO SCH (09:33)
[2022-10-11] MEDS: POTASSIUM CHLORIDE 10MEQ SR TABLET PO SCH ×2 (09:33→21:00)
[2022-10-11] MEDS: FINASTERIDE 5MG TAB PO SCH (09:33)
[2022-10-11] MEDS: GABAPENTIN 300 MG CAP PO SCH ×3 (09:33→21:20)
[2022-10-11] MEDS: MAGNESIUM OXIDE 400MG TAB (MAG-OX) PO SCH ×3 (09:34→21:19)
[2022-10-11] MEDS: NORCO, ANEXSIA 5/325MG TABLET (HYDROcodone/ACETAMINOPHEN) PO PRN (09:34)
[2022-10-11] MEDS: allopurinoL 100 MG TAB PO SCH ×2 (09:34→21:20)
[2022-10-11] MEDS: TAMSULOSIN 0.4 MG CAP PO SCH (09:35)
[2022-10-11] MEDS: levETIRAcetam 250MG TABLET (KEPPRA) PO SCH ×2 (09:35→21:18)
[2022-10-11] MEDS ORDERED: LIDOCAINE 5% (LIDODERM) PATCH TD PRN (13:50)
[2022-10-11] MEDS: guaiFENesin SYRUP 200MG 10ML UDC PO PRN ×2 (14:53→21:26)
[2022-10-11] MEDS: PERCOCET 5MG/325MG TAB PO PRN ×2 (14:55→20:40)
[2022-10-11 17:15] LABS: BLOOD UREA NITROGEN 27 MG/DL (9-23); CALCIUM LEVEL 8.8 MG/DL (8.3-10.6); CARBON DIOXIDE LEVEL 26 MMOL/L (20-31); CHLORIDE LEVEL 104 MMOL/L (98-107); CREATININE FOR GFR 1.08 MG/DL (0.70-1.30); GLOMERULAR FILTRATION RATE > 60.0 (>49); GLUCOSE, FASTING 248 MG/DL (74-106); MAGNESIUM LEVEL 1.7 MG/DL (1.8-2.4); SODIUM LEVEL 138 MMOL/L (136-145)
[2022-10-11] MEDS: RAMELTEON 8 MG TAB (ROZEREM) PO SCH (21:19)
[2022-10-11] MEDS: MIRTAZAPINE 15 MG TAB PO SCH (21:20)
[2022-10-12] MEDS: PERCOCET 5MG/325MG TAB PO PRN ×4 (01:38→16:12)
[2022-10-12 05:02] VITALS: BP 116/72; TEMP 97.9; O2SAT 94
[2022-10-12] MEDS: guaiFENesin SYRUP 200MG 10ML UDC PO PRN (06:18)
[2022-10-12] MEDS: SODIUM CHLORIDE 0.9% INJ 10 ML SYR IV SCH ×4 (06:19→16:12)
[2022-10-12] MEDS: metOLazone 2.5 MG TAB PO SCH (09:00)
[2022-10-12] MEDS: SPIRONOLACTONE 25 MG TAB PO SCH (09:00)
[2022-10-12] MEDS: TORSEMIDE 20 MG TAB PO SCH ×2 (09:00→20:51)
[2022-10-12 09:05] LABS: BLOOD UREA NITROGEN 28 MG/DL (9-23); CALCIUM LEVEL 9.2 MG/DL (8.3-10.6); CARBON DIOXIDE LEVEL 30 MMOL/L (20-31); CHLORIDE LEVEL 101 MMOL/L (98-107); CREATININE FOR GFR 1.08 MG/DL (0.70-1.30); GLOMERULAR FILTRATION RATE > 60.0 (>49); GLUCOSE, FASTING 166 MG/DL (74-106); MAGNESIUM LEVEL 1.8 MG/DL (1.8-2.4); POTASSIUM SERUM 4.8 MMOL/L (3.5-5.1); SODIUM LEVEL 137 MMOL/L (136-145)
[2022-10-12] MEDS: ENOXAPARIN 40MG/0.4ML SYRINGE (J1650 PER 10MG) SC SCH (09:33)
[2022-10-12] MEDS: MAGNESIUM OXIDE 400MG TAB (MAG-OX) PO SCH ×3 (09:34→20:50)
[2022-10-12] MEDS: levETIRAcetam 250MG TABLET (KEPPRA) PO SCH ×2 (09:34→20:52)
[2022-10-12] MEDS: POTASSIUM CHLORIDE 10MEQ SR TABLET PO SCH (09:35)
[2022-10-12] MEDS: PANTOPRAZOLE 40MG TAB (PROTONIX) PO SCH (09:35)
[2022-10-12] MEDS: TAMSULOSIN 0.4 MG CAP PO SCH (09:35)
[2022-10-12] MEDS: PHENYTOIN 50MG CHEW TABLET PO SCH ×3 (09:35→20:52)
[2022-10-12] MEDS: FINASTERIDE 5MG TAB PO SCH (09:35)
[2022-10-12] MEDS: GABAPENTIN 300 MG CAP PO SCH ×3 (09:36→20:51)
[2022-10-12] MEDS: allopurinoL 100 MG TAB PO SCH ×2 (09:36→20:52)
[2022-10-12] MEDS ORDERED: PREPARATION H OINTMENT (HEMORRHOID) PR PRN (20:05)
[2022-10-12 20:22] VITALS: O2SAT 90
[2022-10-12 20:23] VITALS: BP 113/80; TEMP 98.4; O2SAT 94
[2022-10-12 20:29] VITALS: O2SAT 95
[2022-10-12] MEDS: RAMELTEON 8 MG TAB (ROZEREM) PO SCH (20:49)
[2022-10-12] MEDS: MIRTAZAPINE 15 MG TAB PO SCH (20:50)
[2022-10-13] VITALS (8 sets, daily range): BP systolic 106–121; BP diastolic 62–82; TEMP 97.7–100.2; O2SAT 90–95
[2022-10-13] MEDS: guaiFENesin SYRUP 200MG 10ML UDC PO PRN ×2 (01:54→10:25)
[2022-10-13] MEDS: PERCOCET 5MG/325MG TAB PO PRN ×2 (02:43→09:45)
[2022-10-13] MEDS: SODIUM CHLORIDE 0.9% INJ 10 ML SYR IV SCH ×4 (06:00→17:30)
[2022-10-13] MEDS: SPIRONOLACTONE 25 MG TAB PO SCH (09:00)
[2022-10-13] MEDS: TORSEMIDE 20 MG TAB PO SCH ×3 (09:00→22:11)
[2022-10-13] MEDS: allopurinoL 100 MG TAB PO SCH ×3 (09:41→22:11)
[2022-10-13] MEDS: GABAPENTIN 300 MG CAP PO SCH (09:41)
[2022-10-13] MEDS: TAMSULOSIN 0.4 MG CAP PO SCH (09:41)
[2022-10-13] MEDS: PANTOPRAZOLE 40MG TAB (PROTONIX) PO SCH (09:41)
[2022-10-13] MEDS: PHENYTOIN 50MG CHEW TABLET PO SCH ×4 (09:41→22:24)
[2022-10-13] MEDS: POTASSIUM CHLORIDE 10MEQ SR TABLET PO SCH (09:42)
[2022-10-13] MEDS: FINASTERIDE 5MG TAB PO SCH (09:42)
[2022-10-13] MEDS: MAGNESIUM OXIDE 400MG TAB (MAG-OX) PO SCH ×4 (09:42→22:11)
[2022-10-13] MEDS: levETIRAcetam 250MG TABLET (KEPPRA) PO SCH ×3 (09:43→22:25)
[2022-10-13] MEDS: ENOXAPARIN 40MG/0.4ML SYRINGE (J1650 PER 10MG) SC SCH (09:43)
[2022-10-13 10:52] LABS: BLOOD UREA NITROGEN 34 MG/DL (9-23); CALCIUM LEVEL 9.6 MG/DL (8.3-10.6); CARBON DIOXIDE LEVEL 25 MMOL/L (20-31); CHLORIDE LEVEL 101 MMOL/L (98-107); CREATININE FOR GFR 1.06 MG/DL (0.70-1.30); GLOMERULAR FILTRATION RATE > 60.0 (>49); GLUCOSE, FASTING 242 MG/DL (74-106); POTASSIUM SERUM 5.6 MMOL/L (3.5-5.1); SODIUM LEVEL 136 MMOL/L (136-145)
[2022-10-13] MEDS ORDERED: BACLOFEN 5MG PER 1/2 TABLET PO PRN (12:15)
[2022-10-13] MEDS: GABAPENTIN 400MG CAP PO SCH ×3 (17:26→22:11)
[2022-10-13] MEDS: RAMELTEON 8 MG TAB (ROZEREM) PO SCH ×2 (21:00→22:11)
[2022-10-13] MEDS: MIRTAZAPINE 15 MG TAB PO SCH ×2 (21:18→22:11)
[2022-10-13 22:50] LABS: BASO # 0.1 10^3/uL (0.0-0.2); BASO % 0.8 % (0.0-1.0); EOS # 0.3 10^3/uL (0.0-0.5); EOS % 2.9 % (0.0-3.0); HEMATOCRIT 33.8 % (42.0-52.0); HEMOGLOBIN 10.5 g/dl (13.5-17.5); LYMPH # 2.2 10^3/uL (1.5-5.0); LYMPH % 18.1 % (24.0-44.0); MEAN CORPUSCULAR HEMOGLOBIN 30.5 pg (27.0-33.0); MEAN CORPUSCULAR HGB CONC 31.1 g/dl (32.0-36.5); MEAN CORPUSCULAR VOLUME 98.3 fl (80.0-96.0); MONO # 0.8 10^3/uL (0.0-0.8); MONO % 6.9 % (2.0-8.0); NEUTROPHILS # 8.3 10^3/uL (1.5-8.5); NEUTROPHILS % 70.2 % (36.0-66.0); PLATELET COUNT, AUTOMATED 369 10^3/uL (150-450); RED BLOOD COUNT 3.44 10^6/uL (4.30-6.10); WHITE BLOOD COUNT 11.9 10^3/uL (4.0-10.0)
[2022-10-13 23:02] LABS: APPEARANCE, URINE HAZY (CLEAR); BACTERIA, URINE AUTO 1+ (NEGATIVE); BILIRUBIN, URINE AUTO NEGATIVE (NEGATIVE); BLOOD, URINE BLOOD 1+ (NEGATIVE); COLOR, URINE YELLOW (YELLOW); GLUCOSE, URINE (UA) AUTO NEGATIVE (NEGATIVE); KETONE, URINE AUTO NEGATIVE (NEGATIVE); LEUKOCYTE ESTERASE, URINE AUTO 3+ (NEGATIVE); MUCUS, URINE SMALL (NEGATIVE); NITRITE, URINE AUTO NEGATIVE (NEGATIVE); PROTEIN, URINE AUTO 2+ mg/dL (NEGATIVE); RBC, URINE AUTO 19 /HPF (0-3); SPECIFIC GRAVITY URINE AUTO 1.017 (1.002-1.035); SQUAMOUS EPITHELIAL CELL UR AU 0 /HPF (0-6); UROBILINOGEN, URINE AUTO 0.2 mg/dL (0.0-2.0); WBC, URINE AUTO TNTC /HPF (0-3)
[2022-10-13 23:21] LABS: BLOOD UREA NITROGEN 37 MG/DL (9-23); CALCIUM LEVEL 9.4 MG/DL (8.3-10.6); CARBON DIOXIDE LEVEL 27 MMOL/L (20-31); CHLORIDE LEVEL 98 MMOL/L (98-107); CREATININE FOR GFR 1.02 MG/DL (0.70-1.30); GLOMERULAR FILTRATION RATE > 60.0 (>49); GLUCOSE, FASTING 186 MG/DL (74-106); MAGNESIUM LEVEL 2.2 MG/DL (1.8-2.4); POTASSIUM SERUM 5.6 MMOL/L (3.5-5.1); SODIUM LEVEL 133 MMOL/L (136-145)
[2022-10-13] MEDS ORDERED: DEXTROSE 50% 50ML SYRINGE IV STA (23:23)
[2022-10-13] MEDS ORDERED: HumuLIN R (REGULAR) INSULIN (NovoLIN R) **100U/ML** PER UNIT IV STA (23:23)
[2022-10-13 23:34] LABS: PROCALCITONIN 1.26 ng/ml
[2022-10-13] MEDS ORDERED: CALCIUM GLUCONATE 1,000 MG in D5W MINI-BAG PLUS 100 ML IV ONE (23:45)
[2022-10-13] MEDS ORDERED: SODIUM CHLORIDE 0.9% 1000ML IV ONE (23:45)
[2022-10-13] MEDS ORDERED: SODIUM CHLORIDE 0.9% 1000ML IV SCH (23:45)
[2022-10-14] MEDS ORDERED: NS 500 ML IV ONE
[2022-10-14] MEDS: PIPERACILLIN/TAZOBACTAM SOD 3.375 GM in D5W MINI-BAG PLUS 50 ML IV SCH ×3 (00:17→12:25)
[2022-10-14 00:21] VITALS: BP 128/80; TEMP 99.3; O2SAT 98
[2022-10-14] MEDS: SODIUM CHLORIDE 0.9% INJ 10 ML SYR IV PRN ×2 (01:08→22:33)
[2022-10-14] MEDS: guaiFENesin SYRUP 200MG 10ML UDC PO PRN ×2 (01:34→17:36)
[2022-10-14] MEDS: NS 1,000 ML IV SCH ×2 (02:25→10:26)
[2022-10-14] MEDS: SODIUM CHLORIDE 0.9% INJ 10 ML SYR IV SCH ×4 (05:51→17:38)
[2022-10-14 06:10] LABS: BASO # 0.1 10^3/uL (0.0-0.2); BASO % 0.7 % (0.0-1.0); EOS # 0.3 10^3/uL (0.0-0.5); EOS % 2.6 % (0.0-3.0); HEMATOCRIT 31.6 % (42.0-52.0); HEMOGLOBIN 10.1 g/dl (13.5-17.5); LYMPH # 1.7 10^3/uL (1.5-5.0); LYMPH % 13.7 % (24.0-44.0); MEAN CORPUSCULAR VOLUME 96.9 fl (80.0-96.0); MONO # 0.9 10^3/uL (0.0-0.8); MONO % 7.4 % (2.0-8.0); NEUTROPHILS % 74.4 % (36.0-66.0); PLATELET COUNT, AUTOMATED 317 10^3/uL (150-450); RED BLOOD COUNT 3.26 10^6/uL (4.30-6.10)
[2022-10-14 06:46] LABS: BLOOD UREA NITROGEN 32 MG/DL (9-23); CALCIUM LEVEL 9.5 MG/DL (8.3-10.6); CARBON DIOXIDE LEVEL 24 MMOL/L (20-31); CHLORIDE LEVEL 102 MMOL/L (98-107); CREATININE FOR GFR 0.97 MG/DL (0.70-1.30); GLOMERULAR FILTRATION RATE > 60.0 (>49); GLUCOSE, FASTING 160 MG/DL (74-106); POTASSIUM SERUM 5.2 MMOL/L (3.5-5.1); SODIUM LEVEL 136 MMOL/L (136-145)
[2022-10-14] MEDS: GABAPENTIN 400MG CAP PO SCH ×2 (08:45→16:00)
[2022-10-14] MEDS: INSULIN LISPRO (NovoLOG) PER UNIT SC SCH ×4 (08:45→20:27)
[2022-10-14] MEDS: ENOXAPARIN 40MG/0.4ML SYRINGE (J1650 PER 10MG) SC SCH (08:46)
[2022-10-14] MEDS: TAMSULOSIN 0.4 MG CAP PO SCH (08:48)
[2022-10-14] MEDS: levETIRAcetam 250MG TABLET (KEPPRA) PO SCH ×2 (08:49→20:17)
[2022-10-14] MEDS: MAGNESIUM OXIDE 400MG TAB (MAG-OX) PO SCH ×3 (08:49→20:17)
[2022-10-14] MEDS: PHENYTOIN 50MG CHEW TABLET PO SCH ×3 (08:50→20:18)
[2022-10-14] MEDS: allopurinoL 100 MG TAB PO SCH ×2 (08:51→20:17)
[2022-10-14] MEDS: FINASTERIDE 5MG TAB PO SCH (08:52)
[2022-10-14] MEDS: PANTOPRAZOLE 40MG TAB (PROTONIX) PO SCH (08:52)
[2022-10-14] MEDS: TORSEMIDE 20 MG TAB PO SCH ×2 (09:00→20:20)
[2022-10-14] MEDS: SPIRONOLACTONE 25 MG TAB PO SCH (09:00)
[2022-10-14 11:13] VITALS: BP 109/64; TEMP 98.2; O2SAT 94
[2022-10-14] MEDS: PERCOCET 5MG/325MG TAB PO PRN ×2 (12:25→20:21)
[2022-10-14 13:51] VITALS: BP 108/63; TEMP 98.4; O2SAT 96
[2022-10-14 18:48] VITALS: TEMP 97.7; O2SAT 97
[2022-10-14] MEDS: CEFDINIR 300 MG CAP (OMNICEF) PO SCH (20:15)
[2022-10-14] MEDS: RAMELTEON 8 MG TAB (ROZEREM) PO SCH (20:15)
[2022-10-14] MEDS: MIRTAZAPINE 15 MG TAB PO SCH (20:16)
[2022-10-14 20:24] VITALS: BP 125/65
[2022-10-14] MEDS ORDERED: KETOROLAC 30 MG/ML 1ML VIAL IV ONE (22:25)
[2022-10-15] MEDS: PERCOCET 5MG/325MG TAB PO PRN ×4 (02:47→18:32)
[2022-10-15] MEDS: SODIUM CHLORIDE 0.9% INJ 10 ML SYR IV SCH ×4 (05:50→18:33)
[2022-10-15 06:07] VITALS: BP 138/65; TEMP 98.1; O2SAT 93
[2022-10-15] MEDS: levETIRAcetam 250MG TABLET (KEPPRA) PO SCH ×2 (09:15→20:10)
[2022-10-15] MEDS: TAMSULOSIN 0.4 MG CAP PO SCH (09:15)
[2022-10-15] MEDS: PHENYTOIN 50MG CHEW TABLET PO SCH ×3 (09:16→20:10)
[2022-10-15] MEDS: PANTOPRAZOLE 40MG TAB (PROTONIX) PO SCH (09:16)
[2022-10-15] MEDS: CEFDINIR 300 MG CAP (OMNICEF) PO SCH ×2 (09:16→20:10)
[2022-10-15] MEDS: MAGNESIUM OXIDE 400MG TAB (MAG-OX) PO SCH ×3 (09:16→20:09)
[2022-10-15] MEDS: TORSEMIDE 20 MG TAB PO SCH ×2 (09:16→20:10)
[2022-10-15] MEDS: FINASTERIDE 5MG TAB PO SCH (09:16)
[2022-10-15] MEDS: SPIRONOLACTONE 25 MG TAB PO SCH (09:16)
[2022-10-15] MEDS: INSULIN LISPRO (NovoLOG) PER UNIT SC SCH ×4 (09:17→19:57)
[2022-10-15] MEDS: ENOXAPARIN 40MG/0.4ML SYRINGE (J1650 PER 10MG) SC SCH (09:17)
[2022-10-15] MEDS: allopurinoL 100 MG TAB PO SCH ×2 (09:17→20:10)
[2022-10-15 11:47] LABS: BASO # 0.1 10^3/uL (0.0-0.2); BASO % 0.5 % (0.0-1.0); EOS # 0.3 10^3/uL (0.0-0.5); EOS % 2.8 % (0.0-3.0); HEMATOCRIT 29.9 % (42.0-52.0); HEMOGLOBIN 9.5 g/dl (13.5-17.5); LYMPH % 9.1 % (24.0-44.0); MEAN CORPUSCULAR HGB CONC 31.8 g/dl (32.0-36.5); MEAN CORPUSCULAR VOLUME 97.7 fl (80.0-96.0); MONO # 0.6 10^3/uL (0.0-0.8); MONO % 5.6 % (2.0-8.0); NEUTROPHILS # 9.3 10^3/uL (1.5-8.5); NEUTROPHILS % 81.1 % (36.0-66.0); PLATELET COUNT, AUTOMATED 261 10^3/uL (150-450); RED BLOOD COUNT 3.06 10^6/uL (4.30-6.10); WHITE BLOOD COUNT 11.5 10^3/uL (4.0-10.0)
[2022-10-15 12:22] LABS: BLOOD UREA NITROGEN 29 MG/DL (9-23); CALCIUM LEVEL 8.9 MG/DL (8.3-10.6); CARBON DIOXIDE LEVEL 24 MMOL/L (20-31); CHLORIDE LEVEL 101 MMOL/L (98-107); CREATININE FOR GFR 1.01 MG/DL (0.70-1.30); GLOMERULAR FILTRATION RATE > 60.0 (>49); GLUCOSE, FASTING 211 MG/DL (74-106); MAGNESIUM LEVEL 1.8 MG/DL (1.8-2.4); POTASSIUM SERUM 4.3 MMOL/L (3.5-5.1); SODIUM LEVEL 135 MMOL/L (136-145)
[2022-10-15] MEDS: guaiFENesin SYRUP 200MG 10ML UDC PO PRN (13:24)
[2022-10-15] MEDS: RAMELTEON 8 MG TAB (ROZEREM) PO SCH (20:09)
[2022-10-15] MEDS: MIRTAZAPINE 15 MG TAB PO SCH (20:11)
[2022-10-16] MEDS: guaiFENesin SYRUP 200MG 10ML UDC PO PRN ×2 (00:39→09:20)
[2022-10-16] MEDS: PERCOCET 5MG/325MG TAB PO PRN ×3 (01:42→20:21)
[2022-10-16] MEDS: SODIUM CHLORIDE 0.9% INJ 10 ML SYR IV SCH ×4 (05:18→18:01)
[2022-10-16 05:37] VITALS: BP 102/68; TEMP 98.1; O2SAT 92
[2022-10-16 05:40] LABS: BASO # 0.1 10^3/uL (0.0-0.2); BASO % 0.8 % (0.0-1.0); EOS # 0.4 10^3/uL (0.0-0.5); EOS % 3.7 % (0.0-3.0); HEMATOCRIT 31.4 % (42.0-52.0); HEMOGLOBIN 9.9 g/dl (13.5-17.5); LYMPH # 1.5 10^3/uL (1.5-5.0); LYMPH % 13.2 % (24.0-44.0); MEAN CORPUSCULAR HEMOGLOBIN 30.4 pg (27.0-33.0); MEAN CORPUSCULAR HGB CONC 31.5 g/dl (32.0-36.5); MEAN CORPUSCULAR VOLUME 96.3 fl (80.0-96.0); MONO # 0.7 10^3/uL (0.0-0.8); MONO % 6.4 % (2.0-8.0); NEUTROPHILS # 8.4 10^3/uL (1.5-8.5); NEUTROPHILS % 74.9 % (36.0-66.0); PLATELET COUNT, AUTOMATED 252 10^3/uL (150-450); RED BLOOD COUNT 3.26 10^6/uL (4.30-6.10); WHITE BLOOD COUNT 11.2 10^3/uL (4.0-10.0)
[2022-10-16 06:12] LABS: BLOOD UREA NITROGEN 27 MG/DL (9-23); CALCIUM LEVEL 8.9 MG/DL (8.3-10.6); CARBON DIOXIDE LEVEL 28 MMOL/L (20-31); CHLORIDE LEVEL 99 MMOL/L (98-107); CREATININE FOR GFR 1.05 MG/DL (0.70-1.30); GLOMERULAR FILTRATION RATE > 60.0 (>49); GLUCOSE, FASTING 167 MG/DL (74-106); MAGNESIUM LEVEL 1.8 MG/DL (1.8-2.4); POTASSIUM SERUM 3.7 MMOL/L (3.5-5.1); SODIUM LEVEL 137 MMOL/L (136-145)
[2022-10-16 06:18] LABS: PROCALCITONIN 0.84 ng/ml
[2022-10-16] MEDS: TORSEMIDE 20 MG TAB PO SCH ×2 (09:00→20:19)
[2022-10-16] MEDS: SPIRONOLACTONE 25 MG TAB PO SCH (09:00)
[2022-10-16] MEDS: metOLazone 2.5 MG TAB PO SCH (09:00)
[2022-10-16] MEDS: INSULIN LISPRO (NovoLOG) PER UNIT SC SCH ×4 (09:12→20:17)
[2022-10-16] MEDS: ENOXAPARIN 40MG/0.4ML SYRINGE (J1650 PER 10MG) SC SCH (09:13)
[2022-10-16] MEDS: PHENYTOIN 50MG CHEW TABLET PO SCH ×3 (09:14→20:22)
[2022-10-16] MEDS: TAMSULOSIN 0.4 MG CAP PO SCH (09:14)
[2022-10-16] MEDS: CEFDINIR 300 MG CAP (OMNICEF) PO SCH ×2 (09:15→20:21)
[2022-10-16] MEDS: allopurinoL 100 MG TAB PO SCH ×2 (09:15→20:20)
[2022-10-16] MEDS: FINASTERIDE 5MG TAB PO SCH (09:15)
[2022-10-16 09:16] VITALS: BP 110/70
[2022-10-16] MEDS: MAGNESIUM OXIDE 400MG TAB (MAG-OX) PO SCH ×3 (09:16→20:21)
[2022-10-16] MEDS: PANTOPRAZOLE 40MG TAB (PROTONIX) PO SCH (09:17)
[2022-10-16 20:20] VITALS: BP 112/70
[2022-10-16] MEDS: MIRTAZAPINE 15 MG TAB PO SCH (20:21)
[2022-10-16] MEDS: RAMELTEON 8 MG TAB (ROZEREM) PO SCH (20:21)
[2022-10-17] MEDS: guaiFENesin SYRUP 200MG 10ML UDC PO PRN ×2 (02:26→19:53)
[2022-10-17 05:00] VITALS: TEMP 96.8; O2SAT 92
[2022-10-17] MEDS: SODIUM CHLORIDE 0.9% INJ 10 ML SYR IV SCH ×4 (05:03→17:23)
[2022-10-17 05:11] VITALS: BP 120/76
[2022-10-17 05:52] LABS: BASO # 0.1 10^3/uL (0.0-0.2); EOS # 0.6 10^3/uL (0.0-0.5); EOS % 7.4 % (0.0-3.0); HEMOGLOBIN 9.8 g/dl (13.5-17.5); LYMPH # 1.5 10^3/uL (1.5-5.0); MEAN CORPUSCULAR HEMOGLOBIN 30.2 pg (27.0-33.0); MEAN CORPUSCULAR HGB CONC 31.6 g/dl (32.0-36.5); MEAN CORPUSCULAR VOLUME 95.7 fl (80.0-96.0); MONO # 0.5 10^3/uL (0.0-0.8); MONO % 6.3 % (2.0-8.0); NEUTROPHILS # 5.5 10^3/uL (1.5-8.5); NEUTROPHILS % 65.9 % (36.0-66.0); PLATELET COUNT, AUTOMATED 236 10^3/uL (150-450); RED BLOOD COUNT 3.24 10^6/uL (4.30-6.10); WHITE BLOOD COUNT 8.4 10^3/uL (4.0-10.0)
[2022-10-17 06:13] LABS: PHENYTOIN (DILANTIN) 6.4 UG/ML (10.0-20.0)
[2022-10-17 06:16] LABS: BLOOD UREA NITROGEN 26 MG/DL (9-23); CALCIUM LEVEL 8.9 MG/DL (8.3-10.6); CARBON DIOXIDE LEVEL 26 MMOL/L (20-31); CHLORIDE LEVEL 98 MMOL/L (98-107); CREATININE FOR GFR 0.94 MG/DL (0.70-1.30); GLOMERULAR FILTRATION RATE > 60.0 (>49); GLUCOSE, FASTING 153 MG/DL (74-106); MAGNESIUM LEVEL 2.1 MG/DL (1.8-2.4); POTASSIUM SERUM 3.8 MMOL/L (3.5-5.1); SODIUM LEVEL 135 MMOL/L (136-145)
[2022-10-17] MEDS ORDERED: diphenhydrAMINE 25MG CAP PO PRN (08:10)
[2022-10-17] MEDS: TAMSULOSIN 0.4 MG CAP PO SCH (08:42)
[2022-10-17] MEDS: ENOXAPARIN 40MG/0.4ML SYRINGE (J1650 PER 10MG) SC SCH (08:42)
[2022-10-17] MEDS: INSULIN LISPRO (NovoLOG) PER UNIT SC SCH ×4 (08:42→21:00)
[2022-10-17] MEDS: TORSEMIDE 20 MG TAB PO SCH ×2 (08:42→20:50)
[2022-10-17] MEDS: FINASTERIDE 5MG TAB PO SCH (08:43)
[2022-10-17] MEDS: CEFDINIR 300 MG CAP (OMNICEF) PO SCH ×2 (08:43→20:49)
[2022-10-17] MEDS: allopurinoL 100 MG TAB PO SCH ×2 (08:43→20:50)
[2022-10-17] MEDS: PANTOPRAZOLE 40MG TAB (PROTONIX) PO SCH (08:43)
[2022-10-17] MEDS: SPIRONOLACTONE 25 MG TAB PO SCH (08:43)
[2022-10-17] MEDS: MAGNESIUM OXIDE 400MG TAB (MAG-OX) PO SCH ×3 (08:43→20:49)
[2022-10-17] MEDS: PHENYTOIN 50MG CHEW TABLET PO SCH ×3 (08:44→21:49)
[2022-10-17] MEDS: diphenhydrAMINE CREAM 30GM TOP PRN ×2 (14:41→20:51)
[2022-10-17] MEDS: PERCOCET 5MG/325MG TAB PO PRN (20:49)
[2022-10-17] MEDS: RAMELTEON 8 MG TAB (ROZEREM) PO SCH (20:50)
[2022-10-17] MEDS: MIRTAZAPINE 15 MG TAB PO SCH (20:50)
[2022-10-17] MEDS: diphenhydrAMINE 50MG CAP PO PRN (22:04)
[2022-10-18 05:50] VITALS: BP 116/72; TEMP 98.4; O2SAT 93
[2022-10-18] MEDS: SODIUM CHLORIDE 0.9% INJ 10 ML SYR IV SCH ×4 (06:09→17:40)
[2022-10-18] MEDS: INSULIN LISPRO (NovoLOG) PER UNIT SC SCH ×4 (08:44→20:25)
[2022-10-18] MEDS: MAGNESIUM OXIDE 400MG TAB (MAG-OX) PO SCH ×3 (08:45→20:33)
[2022-10-18] MEDS: FINASTERIDE 5MG TAB PO SCH (08:45)
[2022-10-18] MEDS: TAMSULOSIN 0.4 MG CAP PO SCH (08:45)
[2022-10-18] MEDS: CEFDINIR 300 MG CAP (OMNICEF) PO SCH ×2 (08:45→20:33)
[2022-10-18] MEDS: PANTOPRAZOLE 40MG TAB (PROTONIX) PO SCH (08:45)
[2022-10-18] MEDS: allopurinoL 100 MG TAB PO SCH ×2 (08:45→20:33)
[2022-10-18] MEDS: ENOXAPARIN 40MG/0.4ML SYRINGE (J1650 PER 10MG) SC SCH (08:45)
[2022-10-18] MEDS: PHENYTOIN 50MG CHEW TABLET PO SCH ×3 (08:46→20:34)
[2022-10-18] MEDS: TORSEMIDE 20 MG TAB PO SCH ×2 (09:00→20:34)
[2022-10-18] MEDS: SPIRONOLACTONE 25 MG TAB PO SCH (09:00)
[2022-10-18] MEDS: PERCOCET 5MG/325MG TAB PO PRN ×2 (13:49→20:33)
[2022-10-18] MEDS: guaiFENesin SYRUP 200MG 10ML UDC PO PRN (17:47)
[2022-10-18] MEDS: RAMELTEON 8 MG TAB (ROZEREM) PO SCH (20:33)
[2022-10-18] MEDS: MIRTAZAPINE 15 MG TAB PO SCH (20:33)
[2022-10-18 20:38] VITALS: BP 112/68
[2022-10-19] MEDS ORDERED: METAMUCIL (PSYLLIUM) PACKET PO PRN (00:20)
[2022-10-19] MEDS: PERCOCET 5MG/325MG TAB PO PRN ×2 (01:47→20:35)
[2022-10-19] MEDS: SODIUM CHLORIDE 0.9% INJ 10 ML SYR IV SCH ×4 (05:06→17:40)
[2022-10-19 05:15] VITALS: BP 130/72; TEMP 96.6; O2SAT 95
[2022-10-19] MEDS: TORSEMIDE 20 MG TAB PO SCH ×2 (08:25→20:29)
[2022-10-19] MEDS: metOLazone 2.5 MG TAB PO SCH (08:26)
[2022-10-19] MEDS: ENOXAPARIN 40MG/0.4ML SYRINGE (J1650 PER 10MG) SC SCH (08:26)
[2022-10-19] MEDS: allopurinoL 100 MG TAB PO SCH ×2 (08:27→20:26)
[2022-10-19] MEDS: PHENYTOIN 50MG CHEW TABLET PO SCH ×3 (08:28→20:27)
[2022-10-19] MEDS: TAMSULOSIN 0.4 MG CAP PO SCH (08:28)
[2022-10-19] MEDS: INSULIN LISPRO (NovoLOG) PER UNIT SC SCH ×4 (08:29→22:06)
[2022-10-19] MEDS: MAGNESIUM OXIDE 400MG TAB (MAG-OX) PO SCH ×3 (08:30→20:26)
[2022-10-19] MEDS: FINASTERIDE 5MG TAB PO SCH (08:30)
[2022-10-19] MEDS: PANTOPRAZOLE 40MG TAB (PROTONIX) PO SCH (08:30)
[2022-10-19] MEDS: SPIRONOLACTONE 25 MG TAB PO SCH (08:30)
[2022-10-19] MEDS: guaiFENesin SYRUP 200MG 10ML UDC PO PRN (11:32)
[2022-10-19] MEDS: diphenhydrAMINE 50MG CAP PO PRN ×2 (11:32→22:20)
[2022-10-19] MEDS: diphenhydrAMINE CREAM 30GM TOP PRN (11:33)
[2022-10-19 14:00] VITALS: BP 129/89; TEMP 97.2; O2SAT 96
[2022-10-19 19:36] VITALS: BP 125/74; TEMP 97.9; O2SAT 96
[2022-10-19] MEDS: MIRTAZAPINE 15 MG TAB PO SCH (20:26)
[2022-10-19] MEDS: RAMELTEON 8 MG TAB (ROZEREM) PO SCH (20:26)
[2022-10-19 20:30] VITALS: BP 111/69
[2022-10-20] MEDS: SODIUM CHLORIDE 0.9% INJ 10 ML SYR IV SCH ×4 (04:38→18:10)
[2022-10-20 06:00] VITALS: BP 112/69; TEMP 97.3; O2SAT 99
[2022-10-20 08:30] VITALS: BP 118/78
[2022-10-20] MEDS ORDERED: CAPSAICIN 0.025% CR 60 GM TOP SCH (09:00)
[2022-10-20] MEDS: MAGNESIUM OXIDE 400MG TAB (MAG-OX) PO SCH ×3 (10:01→20:40)
[2022-10-20] MEDS: allopurinoL 100 MG TAB PO SCH ×2 (10:02→20:40)
[2022-10-20] MEDS: FINASTERIDE 5MG TAB PO SCH (10:03)
[2022-10-20] MEDS: PANTOPRAZOLE 40MG TAB (PROTONIX) PO SCH (10:03)
[2022-10-20] MEDS: ENOXAPARIN 40MG/0.4ML SYRINGE (J1650 PER 10MG) SC SCH (10:04)
[2022-10-20 10:41] LABS: BASO # 0.1 10^3/uL (0.0-0.2); BASO % 0.8 % (0.0-1.0); EOS # 0.9 10^3/uL (0.0-0.5); HEMATOCRIT 33.3 % (42.0-52.0); HEMOGLOBIN 10.8 g/dl (13.5-17.5); LYMPH # 1.3 10^3/uL (1.5-5.0); LYMPH % 14.9 % (24.0-44.0); MEAN CORPUSCULAR HEMOGLOBIN 30.7 pg (27.0-33.0); MEAN CORPUSCULAR HGB CONC 32.4 g/dl (32.0-36.5); MEAN CORPUSCULAR VOLUME 94.6 fl (80.0-96.0); MONO # 0.6 10^3/uL (0.0-0.8); MONO % 7.1 % (2.0-8.0); NEUTROPHILS # 5.8 10^3/uL (1.5-8.5); NEUTROPHILS % 65.4 % (36.0-66.0); PLATELET COUNT, AUTOMATED 220 10^3/uL (150-450); RED BLOOD COUNT 3.52 10^6/uL (4.30-6.10); WHITE BLOOD COUNT 8.8 10^3/uL (4.0-10.0)
[2022-10-20] MEDS: PHENYTOIN 50MG CHEW TABLET PO SCH ×3 (10:54→20:39)
[2022-10-20] MEDS: SPIRONOLACTONE 25 MG TAB PO SCH (10:54)
[2022-10-20] MEDS: TORSEMIDE 20 MG TAB PO SCH (10:54)
[2022-10-20] MEDS: INSULIN LISPRO (NovoLOG) PER UNIT SC SCH ×4 (10:54→20:30)
[2022-10-20] MEDS: TAMSULOSIN 0.4 MG CAP PO SCH (10:54)
[2022-10-20 11:23] LABS: ALBUMIN 2.5 G/DL (3.2-5.2); ALKALINE PHOSPHATASE 192 U/L (46-116); ALT/SGPT 15 U/L (7.0-40); AST/SGOT 28 U/L (<34); BILIRUBIN,TOTAL 0.3 MG/DL (0.3-1.2); BLOOD UREA NITROGEN 33 MG/DL (9-23); CALCIUM LEVEL 8.9 MG/DL (8.3-10.6); CARBON DIOXIDE LEVEL 26 MMOL/L (20-31); CHLORIDE LEVEL 93 MMOL/L (98-107); CREATININE FOR GFR 1.07 MG/DL (0.70-1.30); GLOMERULAR FILTRATION RATE > 60.0 (>49); GLUCOSE, FASTING 270 MG/DL (74-106); SODIUM LEVEL 128 MMOL/L (136-145)
[2022-10-20] MEDS: PERCOCET 5MG/325MG TAB PO PRN ×2 (12:24→19:47)
[2022-10-20] MEDS ORDERED: CHOLESTYRAMINE 4GM PWD PKT PO SCH (13:00)
[2022-10-20] MEDS ORDERED: SENOKOT S TAB PO PRN (13:20)
[2022-10-20 13:32] LABS: FREE T4 1.06 NG/DL (0.89-1.76)
[2022-10-20] MEDS: MIRALAX *UNIT DOSE* 17GM PACKET PO SCH ×2 (14:13→20:39)
[2022-10-20] MEDS: guaiFENesin SYRUP 200MG 10ML UDC PO PRN (16:34)
[2022-10-20] MEDS: CHOLESTYRAMINE 4GM PWD PKT PO SCH ×2 (17:41→20:39)
[2022-10-20] MEDS: diphenhydrAMINE 50MG CAP PO PRN (18:21)
[2022-10-20] MEDS: RAMELTEON 8 MG TAB (ROZEREM) PO SCH (20:39)
[2022-10-20] MEDS: MIRTAZAPINE 15 MG TAB PO SCH (20:39)
[2022-10-20] MEDS: diphenhydrAMINE CREAM 30GM TOP PRN (20:39)
[2022-10-20] MEDS: CAPSAICIN 0.025% CR 60 GM TOP SCH (20:40)
[2022-10-20] MEDS ORDERED: diphenhydrAMINE 25MG CAP PO ONE (22:00)
[2022-10-21] MEDS: diphenhydrAMINE 50MG CAP PO PRN ×2 (04:37→15:09)
[2022-10-21] MEDS: SODIUM CHLORIDE 0.9% INJ 10 ML SYR IV SCH ×4 (04:39→18:46)
[2022-10-21 06:00] VITALS: BP 113/69; TEMP 97.2; O2SAT 94
[2022-10-21 06:59] LABS: BLOOD UREA NITROGEN 30 MG/DL (9-23); CALCIUM LEVEL 9.2 MG/DL (8.3-10.6); CARBON DIOXIDE LEVEL 28 MMOL/L (20-31); CHLORIDE LEVEL 94 MMOL/L (98-107); CREATININE FOR GFR 0.93 MG/DL (0.70-1.30); GLOMERULAR FILTRATION RATE > 60.0 (>49); GLUCOSE, FASTING 165 MG/DL (74-106); POTASSIUM SERUM 3.8 MMOL/L (3.5-5.1); SODIUM LEVEL 132 MMOL/L (136-145)
[2022-10-21] MEDS: INSULIN LISPRO (NovoLOG) PER UNIT SC SCH ×4 (09:27→21:00)
[2022-10-21] MEDS: MIRALAX *UNIT DOSE* 17GM PACKET PO SCH ×2 (09:27→21:05)
[2022-10-21] MEDS: ENOXAPARIN 40MG/0.4ML SYRINGE (J1650 PER 10MG) SC SCH (09:28)
[2022-10-21] MEDS: FINASTERIDE 5MG TAB PO SCH (09:29)
[2022-10-21] MEDS: MAGNESIUM OXIDE 400MG TAB (MAG-OX) PO SCH ×3 (09:29→21:05)
[2022-10-21] MEDS: TAMSULOSIN 0.4 MG CAP PO SCH (09:29)
[2022-10-21] MEDS: PANTOPRAZOLE 40MG TAB (PROTONIX) PO SCH (09:29)
[2022-10-21] MEDS: allopurinoL 100 MG TAB PO SCH ×2 (09:30→21:06)
[2022-10-21] MEDS: PHENYTOIN 50MG CHEW TABLET PO SCH ×3 (09:51→21:04)
[2022-10-21] MEDS: guaiFENesin SYRUP 200MG 10ML UDC PO PRN (09:51)
[2022-10-21] MEDS: CAPSAICIN 0.025% CR 60 GM TOP SCH (09:52)
[2022-10-21] MEDS: CHOLESTYRAMINE 4GM PWD PKT PO SCH ×4 (10:56→21:05)
[2022-10-21] MEDS ORDERED: MORPHINE 30 MG TAB **MSIR PO ONE (12:30)
[2022-10-21] MEDS: MOM 30ML SUSPENSION UDC PO PRN ×2 (12:33→21:05)
[2022-10-21 18:00] VITALS: BP 115/69; TEMP 97.4; O2SAT 96
[2022-10-21] MEDS: PERCOCET 5MG/325MG TAB PO PRN (18:36)
[2022-10-21] MEDS: ENOXAPARIN 60MG/0.6ML SYRINGE (J1650 PER 10MG) SC SCH (21:04)
[2022-10-21] MEDS: RAMELTEON 8 MG TAB (ROZEREM) PO SCH (21:06)
[2022-10-21] MEDS: MIRTAZAPINE 15 MG TAB PO SCH (21:06)
[2022-10-22] MEDS: SODIUM CHLORIDE 0.9% INJ 10 ML SYR IV SCH ×4 (05:39→18:21)
[2022-10-22 06:00] VITALS: BP 116/70; TEMP 98.6; O2SAT 95
[2022-10-22 07:42] LABS: BLOOD UREA NITROGEN 25 MG/DL (9-23); CALCIUM LEVEL 8.9 MG/DL (8.3-10.6); CARBON DIOXIDE LEVEL 29 MMOL/L (20-31); CHLORIDE LEVEL 95 MMOL/L (98-107); GLOMERULAR FILTRATION RATE > 60.0 (>49); GLUCOSE, FASTING 160 MG/DL (74-106); POTASSIUM SERUM 3.9 MMOL/L (3.5-5.1); SODIUM LEVEL 133 MMOL/L (136-145)
[2022-10-22] MEDS ORDERED: FLEET ENEMA PR ONE (08:05)
[2022-10-22] MEDS ORDERED: BISACODYL 10MG SUPP PR ONE (08:05)
[2022-10-22] MEDS: LACTULOSE 20GM/30ML SYRUP UDC PO SCH ×2 (09:04→12:39)
[2022-10-22] MEDS: ENOXAPARIN 60MG/0.6ML SYRINGE (J1650 PER 10MG) SC SCH ×2 (09:10→21:24)
[2022-10-22] MEDS: TAMSULOSIN 0.4 MG CAP PO SCH (09:13)
[2022-10-22] MEDS: FINASTERIDE 5MG TAB PO SCH (09:13)
[2022-10-22] MEDS: PANTOPRAZOLE 40MG TAB (PROTONIX) PO SCH (09:13)
[2022-10-22] MEDS: MAGNESIUM OXIDE 400MG TAB (MAG-OX) PO SCH ×3 (09:13→21:25)
[2022-10-22] MEDS: allopurinoL 100 MG TAB PO SCH ×2 (09:13→21:24)
[2022-10-22] MEDS: PHENYTOIN 50MG CHEW TABLET PO SCH ×3 (09:14→21:25)
[2022-10-22] MEDS: INSULIN LISPRO (NovoLOG) PER UNIT SC SCH ×4 (09:14→21:00)
[2022-10-22] MEDS: CHOLESTYRAMINE 4GM PWD PKT PO SCH ×4 (10:36→21:25)
[2022-10-22 20:00] VITALS: BP 102/60; TEMP 99; O2SAT 93
[2022-10-22] MEDS: RAMELTEON 8 MG TAB (ROZEREM) PO SCH (21:25)
[2022-10-22] MEDS: MIRTAZAPINE 15 MG TAB PO SCH (21:25)
[2022-10-23] MEDS: PERCOCET 5MG/325MG TAB PO PRN ×2 (02:59→21:10)
[2022-10-23 06:00] VITALS: BP 110/62; TEMP 97.9; O2SAT 97
[2022-10-23] MEDS: SODIUM CHLORIDE 0.9% INJ 10 ML SYR IV SCH ×3 (06:18→17:03)
[2022-10-23 06:30] LABS: BASO # 0.1 10^3/uL (0.0-0.2); BASO % 0.7 % (0.0-1.0); EOS # 0.6 10^3/uL (0.0-0.5); EOS % 6.1 % (0.0-3.0); HEMATOCRIT 32.8 % (42.0-52.0); HEMOGLOBIN 10.6 g/dl (13.5-17.5); LYMPH # 1.5 10^3/uL (1.5-5.0); LYMPH % 14.4 % (24.0-44.0); MEAN CORPUSCULAR HEMOGLOBIN 30.7 pg (27.0-33.0); MEAN CORPUSCULAR HGB CONC 32.3 g/dl (32.0-36.5); MEAN CORPUSCULAR VOLUME 95.1 fl (80.0-96.0); MONO # 0.8 10^3/uL (0.0-0.8); MONO % 7.6 % (2.0-8.0); NEUTROPHILS # 7.1 10^3/uL (1.5-8.5); NEUTROPHILS % 69.2 % (36.0-66.0); PLATELET COUNT, AUTOMATED 172 10^3/uL (150-450); RED BLOOD COUNT 3.45 10^6/uL (4.30-6.10); WHITE BLOOD COUNT 10.3 10^3/uL (4.0-10.0)
[2022-10-23 06:51] LABS: BLOOD UREA NITROGEN 23 MG/DL (9-23); CALCIUM LEVEL 9.3 MG/DL (8.3-10.6); CARBON DIOXIDE LEVEL 28 MMOL/L (20-31); CHLORIDE LEVEL 93 MMOL/L (98-107); CREATININE FOR GFR 0.93 MG/DL (0.70-1.30); GLOMERULAR FILTRATION RATE > 60.0 (>49); GLUCOSE, FASTING 174 MG/DL (74-106); SODIUM LEVEL 130 MMOL/L (136-145)
[2022-10-23] MEDS: INSULIN LISPRO (NovoLOG) PER UNIT SC SCH ×4 (07:57→21:00)
[2022-10-23] MEDS: FINASTERIDE 5MG TAB PO SCH (08:48)
[2022-10-23] MEDS: TAMSULOSIN 0.4 MG CAP PO SCH (08:48)
[2022-10-23] MEDS: diphenhydrAMINE 50MG CAP PO PRN ×2 (08:49→21:09)
[2022-10-23] MEDS: MAGNESIUM OXIDE 400MG TAB (MAG-OX) PO SCH ×3 (08:49→21:09)
[2022-10-23] MEDS: allopurinoL 100 MG TAB PO SCH ×2 (08:49→21:10)
[2022-10-23] MEDS: PANTOPRAZOLE 40MG TAB (PROTONIX) PO SCH (08:49)
[2022-10-23] MEDS: CHOLESTYRAMINE 4GM PWD PKT PO SCH ×4 (08:50→22:14)
[2022-10-23] MEDS: ENOXAPARIN 60MG/0.6ML SYRINGE (J1650 PER 10MG) SC SCH ×2 (08:50→21:11)
[2022-10-23] MEDS: PHENYTOIN 50MG CHEW TABLET PO SCH ×3 (08:50→21:11)
[2022-10-23] MEDS: guaiFENesin SYRUP 200MG 10ML UDC PO PRN ×2 (11:13→23:29)
[2022-10-23 13:26] LABS: PHENYTOIN (DILANTIN) 13.2 UG/ML (10.0-20.0)
[2022-10-23 14:00] VITALS: BP 109/63; TEMP 98.2; O2SAT 95
[2022-10-23] MEDS ORDERED: SENOKOT S TAB PO PRN (16:20)
[2022-10-23] MEDS ORDERED: MOM 30ML SUSPENSION UDC PO PRN (16:20)
[2022-10-23] MEDS ORDERED: MIRALAX *UNIT DOSE* 17GM PACKET PO PRN (16:20)
[2022-10-23 20:37] VITALS: BP 109/62; TEMP 98.4; O2SAT 97
[2022-10-23] MEDS: MIRTAZAPINE 15 MG TAB PO SCH (21:10)
[2022-10-23] MEDS: RAMELTEON 8 MG TAB (ROZEREM) PO SCH (21:10)
[2022-10-24] MEDS: PERCOCET 5MG/325MG TAB PO PRN ×2 (01:30→22:32)
[2022-10-24] MEDS: diphenhydrAMINE 50MG CAP PO PRN ×2 (03:31→16:21)
[2022-10-24] MEDS: SODIUM CHLORIDE 0.9% INJ 10 ML SYR IV SCH ×2 (05:00→17:17)
[2022-10-24 05:01] VITALS: BP 124/78; TEMP 97.7; O2SAT 99
[2022-10-24 06:22] LABS: BASO # 0.1 10^3/uL (0.0-0.2); BASO % 0.5 % (0.0-1.0); EOS # 0.7 10^3/uL (0.0-0.5); EOS % 7.5 % (0.0-3.0); HEMATOCRIT 31.6 % (42.0-52.0); HEMOGLOBIN 10.3 g/dl (13.5-17.5); LYMPH # 1.5 10^3/uL (1.5-5.0); LYMPH % 16.9 % (24.0-44.0); MEAN CORPUSCULAR HEMOGLOBIN 30.7 pg (27.0-33.0); MEAN CORPUSCULAR HGB CONC 32.6 g/dl (32.0-36.5); MONO # 0.6 10^3/uL (0.0-0.8); NEUTROPHILS # 6.1 10^3/uL (1.5-8.5); NEUTROPHILS % 67.2 % (36.0-66.0); PLATELET COUNT, AUTOMATED 153 10^3/uL (150-450); RED BLOOD COUNT 3.36 10^6/uL (4.30-6.10); WHITE BLOOD COUNT 9.1 10^3/uL (4.0-10.0)
[2022-10-24 06:53] LABS: ALBUMIN 2.3 G/DL (3.2-5.2); ALKALINE PHOSPHATASE 165 U/L (46-116); ALT/SGPT 12 U/L (7.0-40); AST/SGOT 21 U/L (<34); BILIRUBIN,TOTAL 0.3 MG/DL (0.3-1.2); BLOOD UREA NITROGEN 23 MG/DL (9-23); CARBON DIOXIDE LEVEL 26 MMOL/L (20-31); CHLORIDE LEVEL 94 MMOL/L (98-107); CREATININE FOR GFR 0.89 MG/DL (0.70-1.30); GLOMERULAR FILTRATION RATE > 60.0 (>49); GLUCOSE, FASTING 134 MG/DL (74-106); POTASSIUM SERUM 3.8 MMOL/L (3.5-5.1); SODIUM LEVEL 131 MMOL/L (136-145); TOTAL PROTEIN 6.6 G/DL (5.7-8.2)
[2022-10-24] MEDS: PANTOPRAZOLE 40MG TAB (PROTONIX) PO SCH (08:52)
[2022-10-24] MEDS: TAMSULOSIN 0.4 MG CAP PO SCH (08:53)
[2022-10-24] MEDS: allopurinoL 100 MG TAB PO SCH ×2 (08:53→22:06)
[2022-10-24] MEDS: ENOXAPARIN 60MG/0.6ML SYRINGE (J1650 PER 10MG) SC SCH ×2 (08:53→22:07)
[2022-10-24] MEDS: MAGNESIUM OXIDE 400MG TAB (MAG-OX) PO SCH ×3 (08:53→22:06)
[2022-10-24] MEDS: INSULIN LISPRO (NovoLOG) PER UNIT SC SCH ×4 (08:54→21:00)
[2022-10-24] MEDS: CHOLESTYRAMINE 4GM PWD PKT PO SCH ×4 (08:55→21:00)
[2022-10-24] MEDS: FINASTERIDE 5MG TAB PO SCH (09:00)
[2022-10-24] MEDS: PHENYTOIN 50MG CHEW TABLET PO SCH (13:28)
[2022-10-24] MEDS: PHENYTOIN ER 100 MG CAP PO SCH ×2 (16:15→22:06)
[2022-10-24] MEDS: MIRTAZAPINE 15 MG TAB PO SCH (22:06)
[2022-10-24] MEDS: RAMELTEON 8 MG TAB (ROZEREM) PO SCH (22:06)
[2022-10-24] MEDS: ANUSOL HC CREAM 30GM TOP SCH (22:07)
[2022-10-24 23:08] LABS: ANA (HEP2) Positive (.); ANTINUCLEAR ANTIBODIES DIRECT Negative (Negative)
[2022-10-25] MEDS: SODIUM CHLORIDE 0.9% INJ 10 ML SYR IV SCH ×2 (06:16→17:18)
[2022-10-25] MEDS: CHOLESTYRAMINE 4GM PWD PKT PO SCH ×4 (08:27→21:16)
[2022-10-25] MEDS: TAMSULOSIN 0.4 MG CAP PO SCH (08:35)
[2022-10-25] MEDS: TORSEMIDE 20 MG TAB PO SCH (08:35)
[2022-10-25] MEDS: MAGNESIUM OXIDE 400MG TAB (MAG-OX) PO SCH ×3 (08:35→20:06)
[2022-10-25] MEDS: SPIRONOLACTONE 25 MG TAB PO SCH (08:36)
[2022-10-25] MEDS: PANTOPRAZOLE 40MG TAB (PROTONIX) PO SCH (08:36)
[2022-10-25] MEDS: FINASTERIDE 5MG TAB PO SCH (08:36)
[2022-10-25] MEDS: allopurinoL 100 MG TAB PO SCH ×2 (08:36→20:06)
[2022-10-25] MEDS: ENOXAPARIN 60MG/0.6ML SYRINGE (J1650 PER 10MG) SC SCH ×2 (08:37→20:07)
[2022-10-25] MEDS: INSULIN LISPRO (NovoLOG) PER UNIT SC SCH ×4 (08:37→20:07)
[2022-10-25] MEDS: ANUSOL HC CREAM 30GM TOP SCH ×2 (08:43→20:07)
[2022-10-25] MEDS: PHENYTOIN ER 100 MG CAP PO SCH ×3 (08:43→20:06)
[2022-10-25] MEDS ORDERED: MORPHINE 30 MG TAB **MSIR PO ONE (11:40)
[2022-10-25] MEDS ORDERED: PILL CUTTER 1 EACH XX PRN (11:50)
[2022-10-25] MEDS: diphenhydrAMINE 50MG CAP PO PRN ×2 (13:10→20:06)
[2022-10-25 14:09] LABS: 5' NUCLEOTIDASE 7 IU/L (0-11); ANTI CENTROMERE ANTIBODY <0.2 AI (0.0-0.9); ANTI DS-DNA AB Negative (Negative); ANTI-MITOCHONDRIAL ANTIBODY <20.0 Units (0.0-20.0); SSA SJOGRENS A <0.2 AI (0.0-0.9); SSB SJOGRENS B <0.2 AI (0.0-0.9)
[2022-10-25] MEDS: PERCOCET 5MG/325MG TAB PO PRN (19:54)
[2022-10-25] MEDS: MIRTAZAPINE 15 MG TAB PO SCH (20:06)
[2022-10-25] MEDS: RAMELTEON 8 MG TAB (ROZEREM) PO SCH (20:06)
[2022-10-25] MEDS ORDERED: FLOM0.4C39 PO (20:53)
[2022-10-25] MEDS ORDERED: MIRA1POW3 PO (20:53)
[2022-10-25] MEDS ORDERED: MIRT-10 PO (20:53)
[2022-10-25] MEDS ORDERED: TORS20TA2 PO (20:53)
[2022-10-25] MEDS ORDERED: METF-838 PO (20:53)
[2022-10-25] MEDS ORDERED: CHOL4PW PO (20:53)
[2022-10-25] MEDS ORDERED: PROC1CRE5 TOP (20:53)
[2022-10-25] MEDS ORDERED: PANT40TA29 PO (20:53)
[2022-10-25] MEDS ORDERED: DILA100C PO (20:53)
[2022-10-25] MEDS ORDERED: MAGN400T2 PO (20:53)
[2022-10-25] MEDS ORDERED: FARX1TAB3 PO (20:55)
[2022-10-26] MEDS: diphenhydrAMINE 50MG CAP PO PRN ×2 (03:24→10:22)
[2022-10-26] MEDS: SODIUM CHLORIDE 0.9% INJ 10 ML SYR IV SCH (05:22)
[2022-10-26] MEDS: SODIUM CHLORIDE 0.9% INJ 10 ML SYR IV PRN (05:23)
[2022-10-26 06:00] VITALS: BP 123/66; TEMP 98.6; O2SAT 92
[2022-10-26] MEDS: INSULIN LISPRO (NovoLOG) PER UNIT SC SCH (08:53)
[2022-10-26] MEDS: ENOXAPARIN 60MG/0.6ML SYRINGE (J1650 PER 10MG) SC SCH (08:54)
[2022-10-26] MEDS: allopurinoL 100 MG TAB PO SCH (08:54)
[2022-10-26] MEDS: TAMSULOSIN 0.4 MG CAP PO SCH (08:55)
[2022-10-26] MEDS: PHENYTOIN ER 100 MG CAP PO SCH (08:58)
[2022-10-26] MEDS: MAGNESIUM OXIDE 400MG TAB (MAG-OX) PO SCH (08:59)
[2022-10-26] MEDS: FINASTERIDE 5MG TAB PO SCH (08:59)
[2022-10-26] MEDS: PANTOPRAZOLE 40MG TAB (PROTONIX) PO SCH (09:00)
[2022-10-26] MEDS: SPIRONOLACTONE 25 MG TAB PO SCH (09:00)
[2022-10-26] MEDS ORDERED: CLOBETASOL PROP 0.05% OINT 30 GM TOP SCH (09:00)
[2022-10-26] MEDS: TORSEMIDE 20 MG TAB PO SCH (09:00)
[2022-10-26] MEDS: CHOLESTYRAMINE 4GM PWD PKT PO SCH (09:00)
[2022-10-26 09:08] LABS: ANCA-ATYPICAL <1:20 titer (Neg:<1:20); CYTOPLASMIC NEUTROP AB ANCA-C <1:20 titer (Neg:<1:20); PERINUCLEAR AB ANCA-P <1:20 titer (Neg:<1:20)
[2022-10-26] MEDS ORDERED: CLOB5CR TOP (09:08)
== END 2022-10-26 11:21 | DRG 853 ==
LOC: M ED 10:16 → EDBD 10:16 → M SDC 14:20 → M ED INP 19:22 → M ICU 19:48 → M PCU 10-04 19:52 → M MSPAV 10-09 10:54
PROVIDERS: ADMIT Internal Medicine; ATTEND Internal Medicine
PROC: 0WUF0JZ Supplement Abdominal Wall with Synthetic Substitute, Open Approach (ICD-10-PCS; 2022-09-25)
PROC: 0DTL0ZZ Resection of Transverse Colon, Open Approach (ICD-10-PCS; principal; 2022-09-25 14:04)
PROC: 5A1955Z Respiratory Ventilation, Greater than 96 Consecutive Hours (ICD-10-PCS; 2022-09-27)
PROC: 02HV33Z Insertion of Infusion Device into Superior Vena Cava, Percutaneous Approach (ICD-10-PCS; 2022-10-02)
DX: A41.9 Sepsis, unspecified organism (principal); J96.01 Acute respiratory failure with hypoxia; R65.21 Severe sepsis with septic shock; K63.1 Perforation of intestine (nontraumatic); K65.9 Peritonitis, unspecified; G93.41 Metabolic encephalopathy; M72.6 Necrotizing fasciitis; K43.6 Other and unspecified ventral hernia with obstruction, without gangrene; E87.1 Hypo-osmolality and hyponatremia; N17.9 Acute kidney failure, unspecified; Z68.43 Body mass index [BMI] 50.0-59.9, adult; E87.0 Hyperosmolality and hypernatremia; D62 Acute posthemorrhagic anemia; I50.30 Unspecified diastolic (congestive) heart failure; N39.0 Urinary tract infection, site not specified; T83.511A Infection and inflammatory reaction due to indwelling urethral catheter, initial encounter; E66.01 Morbid (severe) obesity due to excess calories; I11.0 Hypertensive heart disease with heart failure; G60.0 Hereditary motor and sensory neuropathy; G47.33 Obstructive sleep apnea (adult) (pediatric); E11.65 Type 2 diabetes mellitus with hyperglycemia; M10.9 Gout, unspecified; E11.40 Type 2 diabetes mellitus with diabetic neuropathy, unspecified; G40.909 Epilepsy, unspecified, not intractable, without status epilepticus; K21.9 Gastro-esophageal reflux disease without esophagitis; R19.7 Diarrhea, unspecified; Z79.84 Long term (current) use of oral hypoglycemic drugs; E87.6 Hypokalemia; E83.42 Hypomagnesemia; N40.0 Benign prostatic hyperplasia without lower urinary tract symptoms; L25.9 Unspecified contact dermatitis, unspecified cause; Z79.899 Other long term (current) drug therapy; I95.81 Postprocedural hypotension